=== PATIENT | female | born 1970 | race Caucasian/White ===

== ENCOUNTER 2022-12-06 15:35 | Outpatient (REF) | payer MEDICAID, SELFPAY ==
[2022-12-06 17:20] LABS: MANUAL DIFF FLAG NO
[2022-12-06 17:47] LABS: Alanine Aminotransferase 29 U/L (0-31); Albumin Level 4.3 g/dL (3.5-5.0); Alkaline Phosphatase 77 U/L (39-117); Anion Gap 12 (12-20); Aspartate Amino Transferase 21 U/L (5-31); Bilirubin Total 0.5 mg/dL (0.0-1.0); Blood Urea Nitrogen 9 mg/dL (9-16); C Reactive Protein < 0.10 mg/dL (< or = 0.50); Carbon Dioxide 29 mmol/L (22-29); Chloride 103 mmol/L (96-108); Cholesterol 197 mg/dL; Estimated Glomerular Filt Rate > 60; Glucose Random 100 mg/dL (60-115); HDL Cholesterol 76 mg/dL; LDL Cholesterol Calculated 102 mg/dl; Potassium 3.7 mmol/L (3.3-5.1); Sodium 140 mmol/L (135-145); Total Protein 6.6 g/dL (6.5-8.0); Triglycerides 95 mg/dL
[2022-12-06 17:51] LABS: Basophils Percent Auto 0.6 % (0-2); Eosinophils Absolute Auto 0.1 X10*3/uL (0.0-0.4); Eosinophils Percent Auto 1.8 % (0-4); Hematocrit 41.1 % (37.0-47.0); Hemoglobin 14.1 g/dl (12.0-16.0); Imm Gran Abs Auto 0.04 X10*3/uL (0.00-0.03); Imm Gran Pct Auto 0.6 % (0.0-0.4); Lymphocytes Absolute Auto 1.9 X10*3/uL (1.2-4.9); Mean Corpuscular HGB Conc 34.3 g/dl (31.0-35.0); Mean Corpuscular Hemoglobin 31.5 pg (27.0-33.0); Mean Corpuscular Volume 91.9 fL (80.0-98.0); Mean Platelet Volume 9.7 fL (9.4-12.3); Monocytes Absolute Auto 0.6 X10*3/uL (0.1-1.2); Neutrophils Absolute Auto 3.9 x10*3/uL (2.0-8.3); Platelet Count 356 X10*3/uL (160-400); Red Blood Count 4.47 X10*6/uL (4.20-5.50); Red Cell Distribution Width 12.1 % (11.0-16.0); White Blood Count 6.6 X10*3/uL (4.8-10.8)
[2022-12-06 17:54] LABS: Estimated Average Glucose 114 mg/dL; Hemoglobin A1c % 5.6 %
[2022-12-06 18:02] LABS: Cortisol Random 9.1 ug/dL; TSH reflex Free T4 1.61 uIU/mL (0.32-4.0); Vitamin D 25-OH Total 57.7 ng/mL (>30)
[2022-12-06 18:13] LABS: Folate 11.6 ng/mL (> or = 4.0); Vitamin B12 1984 pg/mL (200-900)
[2022-12-06 18:16] LABS: Erythrocyte Sedimentation Rate 12 MM/HR (0-20)
[2022-12-07 08:26] LABS: Syphilis Screen Nonreactive (Nonreactive)
[2022-12-07 08:46] LABS: ~Hepatitis C Antibody Nonreactive (Nonreactive)
[2022-12-07 08:55] LABS: HBS Num1 0.19 mIU/mL (0-7.99); HBc Num1 0.19 S/CO (0.00-0.79); HBsAGNum1 0.42 S/CO (0.00-0.99); HIV AB/AG Nonreactive (Nonreactive); HIV Num 1 0.05 S/CO (0.00-0.99); Hepatitis B Core Antibody Nonreactive (Nonreactive); Hepatitis B Surface Antigen Negative (Negative); ~Hepatitis B Surface Antibody NONREACTIVE (Nonreactive)
== END 2022-12-06 15:36 | disposition home or self-care (01) ==
LOC: HO.HHCL 15:35
PROVIDERS: Visit Provider Student in an Organized Health Care Education/Training Program
DX: Z00.00 Encounter for general adult medical examination without abnormal findings (principal); Z11.4 Encounter for screening for human immunodeficiency virus [HIV]
CPT/HCPCS: 80053; 80061; 82306; 82533; 82607; 82746; 83036; 84443; 85025; 85652; 86140; 86704; 86706; 86780; 86803; 87340; 87389

== ENCOUNTER 2022-12-11 13:45 | Outpatient (REF) | payer MEDICAID, SELFPAY ==
[2022-12-11 17:24] LABS: Creatinine Urine 58.13 mg/dL
[2022-12-12 11:36] LABS: CT PCR NOT DETECTED (Not Detect.); NG PCR NOT DETECTED (Not Detect.)
== END 2022-12-11 13:46 | disposition home or self-care (01) ==
LOC: HO.HHCL 13:45
PROVIDERS: Visit Provider Student in an Organized Health Care Education/Training Program
DX: Z00.00 Encounter for general adult medical examination without abnormal findings (principal); Z11.3 Encounter for screening for infections with a predominantly sexual mode of transmission
CPT/HCPCS: 0353U; 82043

== ENCOUNTER 2023-01-04 16:04 | Outpatient (REF) | payer MEDICAID, SELFPAY ==
--- NOTE | ~2023-01-04 | US_ITS ---
EXAMINATION: US THYROID CLINICAL INFORMATION: Thyroid nodule. COMPARISON: None available. TECHNIQUE: Linear transducer grayscale and color Doppler examination with attention to the region of the thyroid. FINDINGS: SIZE: Measurements of the thyroid lobes and nodules are given in sagittal, anteroposterior and transverse dimensions respectively. Right Thyroid Lobe: 3.8 x 1.7 x 1.1 cm, volume 2.3 mL. Parenchyma: The gland echotexture is homogeneous. Thyroid vascularity is normal. Left Thyroid Lobe: 3.6 x 1.2 x 1.0 cm, volume 2.3 mL. Parenchyma: The gland echotexture is homogeneous. Thyroid vascularity is normal. Isthmus: 0.3 cm in maximum AP dimension. No focal thyroid nodule is seen. NODES: 1.6 x 0.4 x 0.9 cm lymph node is seen in the right neck and is benign appearance with a large fatty center. US/US thyroid IMPRESSION: Normal size homogeneous thyroid gland without a focal nodule. 1.6 cm enlarged benign-appearing lymph node is seen in the right side of the neck. ACR TI-RADS RECOMMENDATION REFERENCE: Ultrasound-guided fine-needle aspiration, followup ultrasound, no further follow up. * TR1 (0 point) and TR2 (2 points): No FNA or follow up. * TR3 (3 points): FNA if more than or equal to 2.5 cm in maximum dimension, followup ultrasound in 1, 3 and 5 years if 1.5 to 2.4 cm in maximum dimension. * TR4 (4-6 points): FNA if more than or equal to 1.5 cm in maximum dimension, followup ultrasound in 1, 2, 3 and 5 years if 1 to 1.4 cm in maximum dimension. * TR5 (more than or equal to 7 points): FNA if more than or equal to 1 cm in maximum dimension, followup ultrasound every year for 5 years if 0.5 to 0.9 cm in maximum dimension. * TR3, TR4 or TR5 nodules that are below the size threshold for followup receive no follow up.
== END 2023-01-04 16:05 | disposition home or self-care (01) ==
LOC: HO.US 16:04
PROVIDERS: PCP Student in an Organized Health Care Education/Training Program; Visit Provider Student in an Organized Health Care Education/Training Program
DX: E04.1 Nontoxic single thyroid nodule (principal)
CPT/HCPCS: 76536

== ENCOUNTER 2023-01-09 13:03 | Outpatient (AMB) | payer MEDICAID, SELFPAY ==
--- NOTE | 2023-01-09 13:06 | MHC.OFFVIS ---
Intake Vital Signs 01/09/23 13:08 Height 5 ft 5 in Weight 143 lb 11.862 oz BMI 23.9 BP 143/83 H Blood Pressure Location Lt brachial Position Sitting Pulse 70 Pulse Source Pulse Oximeter Pulse Oximetry (%) 98 Oxygen Delivery Method Room Air Intake Visit Reasons: Colonoscopy Screening Intake Note: Pt presents to the office today for a colonoscopy screening. Pt denies and NVD. She states she occasionally has acid refulx. She also states in the past shes had polyps removed. Allergies No Known Allergies Allergy (Verified 01/09/23 13:09) Medication List - Last Reconciled 01/09/23 by Ashwini Simmons PA-C aripiprazole 20 mg PO DAILY atorvastatin 40 mg PO QAM celecoxib 100 mg PO DAILY dapagliflozin propanediol (Farxiga) 5 mg PO QAM fluoxetine 40 mg PO QAM gabapentin 800 mg PO QID lamotrigine 100 mg PO QAM losartan 25 mg PO DAILY metformin 1,000 mg PO BID omeprazole 20 mg PO DAILY quetiapine 100 mg PO BEDTIME zolpidem 10 mg PO BEDTIME PRN HPI HPI Comments History of Present Illness Details A 52 y/o female history of polyps- last colonoscopy [place] - 8 years ago She has had an EGD -that was normal- in [place] as well- acid reflux well controlled- appetite is good Bowels normal No cardiac or respiratory PFSH Medical History (Updated 01/09/23 @ 13:45 by Ashwini Simmons PA-C) delivery delivered Surgical History (Updated 01/09/23 @ 13:13 by Marbella Rice MA) History of cholecystectomy History of hysterectomy Social History (Updated 01/09/23 @ 13:14 by Marbella Rice MA) Household Members: Children Housing: House Alcohol intake: never Patient Tobacco Use Status: Never used Tobacco Use of substances other than those prescribed or required for medical reasons: No service: No Current occupational status: disabled Review of Systems Const All systems reviewed & are unremarkable except as noted in HPI and below Card Denies chest pain and Denies dyspnea Resp Denies dyspnea GI Denies abdominal pain, Denies hematochezia, Denies change in bowel habits, Denies heartburn, Denies nausea and Denies vomiting Physical Exam Vital Signs: Last Vital Signs Pulse 70 01/09/23 13:08 BP 143/83 H 01/09/23 13:08 Pulse Ox 98 01/09/23 13:08 Oxygen Delivery Method Room Air 01/09/23 13:08 BMI result Body Mass Index 23.9 Const General: cooperative, healthy appearing, comfortable and no acute distress Orientation/consciousness: patient oriented x3 Limitations: language barrier Resp Effort & Inspection: normal respiratory effort and able to speak in complete sentences Auscultation: clear to auscultation bilaterally, no crackles, no rales and no rhonchi Cardio Rate: regular rate Rhythm: regular rhythm Heart sounds: S1 normal heart sound present and S2 normal heart sound present GI Palpation (GI): Soft to palpation and nontender Auscultation: normal bowel sounds Skin General skin exam: no rashes or lesions noted Neuro General: patient oriented x3 Extrem General: Yes full ROM Psych Appearance: grossly normal and well kempt Mental Status: mental status grossly normal Speech and movement: Normal speech and movement present and Clear speech present Affect: normal affect Attitude: cooperative Thought process: Normal thought process present Thought content: Normal thought content present Insight: Good insight present (Psych) Judgement: Good judgement present (Psych) Assessment & Plan Assessment & Plan (1) History of colon polyps: Comment: Colonoscopy [place] about 8 years ago Code(s): Z86.010 - Personal history of colonic polyps Plan Polyp surveillance Colonoscopy - MG split Orders: Orders Colonoscopy - GI Use Only Today Z86.010 - Personal history of colonic polyps Medications: New bisacodyl (Dulcolax (bisacodyl)) Take 4 tablets by mouth at 12:00pm the day before your procedure. 20 mg (4 x 5 mg) PO ONCE 1 day 4 tabs 0RF colonoscopy prep Z12.11 - Encounter for screening for malignant neoplasm of colon polyethylene glycol 3350 (Miralax) Take as directed by mouth the day before your procedure. 238 grams PO ONCE 1 day PRN 238 grams 0RF laxative effect Patient Instructions: Very pleasant 52-year-old female history of colon polyps referred for colonoscopy-her is present, very supportive, nice Gent Discussed procedure, indications, rare risks, need for escorted due to anesthesia as well as prep She has very well controlled reflux with PPI- Coding Level of Care Code New Pt Level 3 (15725) Diagnoses History of colon polyps Z86.010 Time Spent (min) 30 Comment Regional Transfer Liaison
[2023-01-09 13:08] VITALS: BP 143/83; PULSE 70; O2SAT 98; BMI 23.9
== END 2023-01-09 13:38 | disposition home or self-care (01) ==
PROVIDERS: PCP Student in an Organized Health Care Education/Training Program; Visit Provider Physician Assistant
DX: Z86.010 Personal history of colon polyps (principal)
CPT/HCPCS: 99203

== ENCOUNTER → 2023-01-09 13:03 | Outpatient (BNVA) | payer MEDICAID, SELFPAY | PROVIDERS: PCP Student in an Organized Health Care Education/Training Program; Visit Provider Physician Assistant | DX: Z01.818 Encounter for other preprocedural examination (principal); Z86.010 Personal history of colon polyps | CPT/HCPCS: 99202; 99203 ==

== ENCOUNTER 2023-01-11 10:06 | Outpatient (REF) | payer MEDICAID, SELFPAY ==
--- NOTE | ~2023-01-11 | MM_ITS ---
EXAMINATION: MM SCREENING DIGITAL BREAST TOMOSYNTHESIS, BILATERAL CLINICAL INFORMATION: Screening. Asymptomatic. COMPARISON: Mammography: The patient's prior mammograms from [place]. The images have been requested and an addendum report will be issued when they are received entered comparison is made. TECHNIQUE: Digital breast tomosynthesis is performed in both the craniocaudal and mediolateral oblique views along with computer-aided detection (CAD). Synthesized 2D images are generated from the tomosynthesis. FINDINGS: There are scattered areas of fibroglandular density (ACR BI-RADS breast composition Category b). There are no significant masses, abnormal calcifications, or other abnormalities. MM/MM tomosynthesis screening BI IMPRESSION: No mammographic evidence of malignancy. ASSESSMENT: BI-RADS BI-RADS 1 - Negative RECOMMENDATION: 1. Radiology department staff will attempt to retrieve outside prior exam(s) to allow for comparison in an addendum report. 2. Otherwise, routine annual mammography. 1 year F/U This examination should not preclude the clinical evaluation of a suspicious palpable abnormality. This patient's information was entered into a reminder system with a target due date for their next mammogram.
== END 2023-01-11 10:07 | disposition home or self-care (01) ==
LOC: HO.MAMMO 10:06
PROVIDERS: PCP Student in an Organized Health Care Education/Training Program; Visit Provider Student in an Organized Health Care Education/Training Program
DX: Z12.31 Encounter for screening mammogram for malignant neoplasm of breast (principal)
CPT/HCPCS: 77063; 77067

== ENCOUNTER → 2023-01-11 10:15 | Outpatient (BNV) | payer MEDICAID, SELFPAY | PROVIDERS: PCP Student in an Organized Health Care Education/Training Program; Visit Provider Radiology Diagnostic Radiology | DX: Z12.31 Encounter for screening mammogram for malignant neoplasm of breast (principal) | CPT/HCPCS: 77063; 77067 ==

== ENCOUNTER 2023-01-23 08:20 | Outpatient (REF) | payer MEDICAID, SELFPAY ==
--- NOTE | ~2023-01-23 | CT_ITS ---
EXAMINATION: CT ABDOMEN AND PELVIS WITH CONTRAST CLINICAL INFORMATION: History of uterine CA. COMPARISON: None available. TECHNIQUE: Multidetector volumetric images were obtained from the superior aspect of the liver through the pubic symphysis following administration 85 mL of Omnipaque 350 intravenous contrast. Sagittal and coronal reformatted images were obtained on the technologist's workstation. Oral contrast: No This CT examination was performed using dose optimization techniques as appropriate, variously including the following: *Automated exposure control *Adjustment of mA and/or kV according to patient size (this includes techniques or standardized protocols for targeted exams where dose is matched to indication/reason for exam; i.e. extremities or head) *Use of iterative reconstruction technique DLP: 295 mGy-cm FINDINGS: LUNG BASES: There are minimal atelectatic changes right middle lobe medially. The lung bases are clear. The heart size is normal. LIVER, GALLBLADDER, AND BILIARY TREE: The liver is normal in size, shape, and attenuation. No focal hepatic lesion or biliary ductal dilatation is present. The gallbladder is not visualized, likely surgically removed or contracted. PANCREAS: Unremarkable. SPLEEN: The spleen is normal size. There is a 1.2 cm faintly enhancing lesion mid segment on axial image 16/3, likely a small hemangioma. There are small accessory splenules. ADRENAL GLANDS: Unremarkable. KIDNEYS AND URETERS: The kidneys are normal in size, shape, and attenuation. No hydronephrosis, hydroureter, or calculi seen. No perinephric stranding. BLADDER: Unremarkable. GASTROINTESTINAL TRACT: There is scattered stool and gas seen throughout the colon without any significant distention. There is a soft tissue density along the base of the cecum measuring 1.8 x 2.6 cm on coronal image 38/6. The ileocecal valve is normal. The small bowel loops are normal caliber. Appendix is not visualized. The stomach is nondistended. ABDOMINAL WALL: No significant hernia is appreciated. LYMPH NODES: Normal. VASCULAR: Unremarkable. PELVIC VISCERA: The uterus and ovaries are not visualized, likely surgically removed. No abnormal pelvic or inguinal lymph nodes seen. OSSEOUS STRUCTURES: No aggressive lytic or sclerotic process seen. CT/CT abdomen pelvis w IV con IMPRESSION: 1. No acute intra-abdominal process seen. 2. There is a soft tissue density along the base of the cecum measuring 1.8 x 2.6 cm. Mass versus adherent stool. Recommend correlation with irregular colonoscopy or CT colonoscopy. 3. No abnormal retroperitoneal or pelvic lymph nodes seen. 4. Probable small hemangioma mid segment of the spleen. 5. Gallbladder is not visualized likely surgically removed or contracted. Fleischner guidelines were followed.
[2023-01-23] MEDS: Barium Sulfate Oral (Berry) 450 ML ORAL.SUSP 900 ML PO (10:58)
[2023-01-23] MEDS: iohexoL 350 MG/ML 100 ML INFUS..BTL IV (10:59)
[2023-01-24 08:55] LABS: Creatinine POC 0.4 mg/dL (0.5-1.4); GFR POC 60
== END 2023-01-23 08:21 | disposition home or self-care (01) ==
LOC: HO.CT 08:20
PROVIDERS: PCP Student in an Organized Health Care Education/Training Program; Visit Provider Student in an Organized Health Care Education/Training Program
DX: Z85.42 Personal history of malignant neoplasm of other parts of uterus (principal)
CPT/HCPCS: 74177; 82565; Q9967

== ENCOUNTER 2023-03-05 12:17 | Outpatient (REF) | payer MEDICAID, SELFPAY ==
[2023-03-05 13:58] LABS: Estimated Average Glucose 114 mg/dL; Hemoglobin A1c % 5.6 % (<6.0)
[2023-03-05 14:22] LABS: Alanine Aminotransferase 38 U/L (0-31); Albumin Level 4.6 g/dL (3.5-5.0); Alkaline Phosphatase 125 U/L (39-117); Anion Gap 13 (12-20); Aspartate Amino Transferase 22 U/L (5-31); Bilirubin Total 0.4 mg/dL (0.0-1.0); Blood Urea Nitrogen 13 mg/dL (9-16); Calcium 10.2 mg/dL (8.4-10.2); Carbon Dioxide 29 mmol/L (22-29); Chloride 104 mmol/L (96-108); Cholesterol 207 mg/dL (<200); Estimated Glomerular Filt Rate > 60; Glucose Random 127 mg/dL (60-115); HDL Cholesterol 63 mg/dL (>40); LDL Cholesterol Calculated 131 mg/dL (<100); Potassium 4.3 mmol/L (3.3-5.1); Sodium 142 mmol/L (135-145); Total Protein 7.2 g/dL (6.5-8.0); Triglycerides 65 mg/dL (<150)
[2023-03-05 14:41] LABS: Folate 12.2 ng/mL (> or = 4.0); Vitamin B12 1325 pg/mL (200-900)
[2023-03-05 15:13] LABS: Microalbum/Creatinine Ratio Ur 7.4 ug/mg cr (<30)
== END 2023-03-05 12:18 | disposition home or self-care (01) ==
LOC: HO.HHCL 12:17
PROVIDERS: Visit Provider Student in an Organized Health Care Education/Training Program
DX: E11.40 Type 2 diabetes mellitus with diabetic neuropathy, unspecified (principal)
CPT/HCPCS: 36415; 80053; 80061; 82043; 82570; 82607; 82746; 83036

== ENCOUNTER 2023-03-19 12:10 | Day surgery (SDC) | payer MEDICAID, SELFPAY ==
[2023-03-15 11:25] VITALS: BMI 23.8
--- NOTE | 2023-03-18 09:15 | HO.ANESPROP2 ---
Documented by User: Serina Delcid NP 03/18/23 09:17 HPI - Anesthesia Eval Consult details Narrative: 52yo F Colonoscopy PMFSH Active Problems Active Problems: All Active Problems (Updated 01/09/23 @ 13:45 by Ashwini Simmons PA-C) History of colon polyps (Acute) Past Medical History Medical History delivery delivered Surgical History Surgical History History of hysterectomy History of cholecystectomy Social History Social History (Updated 01/09/23 @ 13:14 by Marbella Rice MA) Household Members: Children Housing: House Alcohol intake: never Patient Tobacco Use Status: Never used Tobacco Use of substances other than those prescribed or required for medical reasons: No Are you DNR?: No Advance Directives: No Advance Directives Information Provided: Yes service: No Current occupational status: disabled Meds Allergies Allergy/AdvReac Type Severity Reaction Status Date / Time No Known Allergies Allergy Verified 03/19/23 12:34 Home Medications Medication Instructions Recorded Confirmed Last Taken Type atorvastatin 40 mg tablet 40 mg PO QAM 01/09/23 Unknown History dapagliflozin propanediol 5 mg 5 mg PO QAM 01/09/23 Unknown History tablet (Farxiga) fluoxetine 40 mg capsule 40 mg PO QAM 01/09/23 Unknown History gabapentin 800 mg tablet 800 mg PO QID 01/09/23 Unknown History lamotrigine 100 mg tablet 100 mg PO QAM 01/09/23 03/19/23 03/19/23 History losartan 25 mg tablet 25 mg PO DAILY 01/09/23 Unknown History metformin 1,000 mg tablet 1,000 mg PO BID 01/09/23 Unknown History omeprazole 20 mg capsule,delayed 20 mg PO DAILY 01/09/23 Unknown History release quetiapine 100 mg tablet 100 mg PO BEDTIME 01/09/23 Unknown History zolpidem 10 mg tablet 10 mg PO BEDTIME PRN insomnia 01/09/23 Unknown History Exam Exam Date and Time: March 18, 2023 0915 Height,Weight and Vital Signs: Height 5 ft 5 in Weight 64.864 kg Pertinent Lab Results Pertinent Lab Results: Laboratory Tests 12/06/22 03/05/23 15:45 12:21 WBC 6.6 Hgb 14.1 Hct 41.1 Plt Count 356 Sodium 142 Potassium 4.3 Chloride 104 Carbon Dioxide 29 BUN 13 Creatinine 0.72 Assessment and Plan Assessment Anesthesia Assessment: Chart Reviewed Documented by User: Sil Gonzalez MD 03/19/23 13:13 [facility], [facility] Past Medical History Medical History delivery delivered Family History Family history of problems with anesthesia: No Surgical History Surgical History History of hysterectomy History of cholecystectomy History of Problems with Anesthesia: No Social History Social History (Updated 01/09/23 @ 13:14 by Marbella Rice MA) Household Members: Children Housing: House Alcohol intake: never Patient Tobacco Use Status: Never used Tobacco Use of substances other than those prescribed or required for medical reasons: No Are you DNR?: No Advance Directives: No Advance Directives Information Provided: Yes service: No Current occupational status: disabled Meds Allergies Allergy/AdvReac Type Severity Reaction Status Date / Time No Known Allergies Allergy Verified 03/19/23 12:34 Home Medications Medication Instructions Recorded Confirmed Last Taken Type atorvastatin 40 mg tablet 40 mg PO QAM 01/09/23 Unknown History dapagliflozin propanediol 5 mg 5 mg PO QAM 01/09/23 Unknown History tablet (Farxiga) fluoxetine 40 mg capsule 40 mg PO QAM 01/09/23 Unknown History gabapentin 800 mg tablet 800 mg PO QID 01/09/23 Unknown History lamotrigine 100 mg tablet 100 mg PO QAM 01/09/23 03/19/23 03/19/23 History losartan 25 mg tablet 25 mg PO DAILY 01/09/23 Unknown History metformin 1,000 mg tablet 1,000 mg PO BID 01/09/23 Unknown History omeprazole 20 mg capsule,delayed 20 mg PO DAILY 01/09/23 Unknown History release quetiapine 100 mg tablet 100 mg PO BEDTIME 01/09/23 Unknown History zolpidem 10 mg tablet 10 mg PO BEDTIME PRN insomnia 01/09/23 Unknown History Exam Airway Mallampati Class: II TM Dist: >3cm Neck ROM: Full Assessment and Plan Assessment Anesthesia Assessment: Anesthesia Plan Discussed Final Anesthetic Review Family History of Problems with Anesthesia: No History of Problems with Anesthesia: No NPO: Yes ASA Class: III Final Preanesthetic Review: No Changes in Pt Med Stat, Meds/Allgs Chart Reviewed, Consent Obtained/Reviewed and Anes Risks/Benef Reviewed Patient Risk: Intermediate Procedure Risk: Low Anesthetic Plan Anesthetic Plan: MAC: Disposition: Standard PACU
[2023-03-19 12:28] VITALS: BMI 24.5
[2023-03-19 12:48] VITALS: BP 139/76; PULSE 70; RESP 16; TEMP 36.6; O2SAT 97
[2023-03-19 12:55] LABS: Glucose, Whole Blood 130 mg/dL (60-115)
--- NOTE | 2023-03-19 13:33 | MHC.SHP ---
Pre-Procedural Eval Section A Date of Service: 03/19/23 Section B Chief Complaint: Cecal mass Details of Present Illness: prev colo in [place] around 2014 with reported hx of polyps Relevant Family History (Specify if Yes): No Relevant Social History: None Present Medications: see Short Stay Collaborative assessment Medical History: No relevant PMH History of Previous Operations: No relevant previous surgery Allergies: Allergies Allergy/AdvReac Type Severity Reaction Status Date / Time No Known Allergies Allergy Verified 03/19/23 12:34 Review of Systems Review of Systems Comment: 10 point ROS negative Exam Exam Comment: Gen appear: No acute distress HEENT: no icterus Chest: No overt resp distress Abd: soft, nontender, nondistended Psych: Stable affect, answering questions appropriately Neuro: A/Ox3 noted to move all extremities spontaneously Ext: no peripheral edema Plan Diagnosis/Plan: Unchanged I have reviewed the history and physical and performed a pertinent physical examination on my patient. No changes have occurred unless specified. Time Spent With Patient Time: Total time managing care of this patient today ____ minutes.
--- NOTE | 2023-03-19 13:34 | P.OP_ITS ---
Operative Note Operative Note Date of Service: 03/19/23 Narrative: Procedure: Colonoscopy Indication: Abnormal imaging r/o cecal mass Endoscopist: Gavi Dixon MD Anesthesia Provider: Bre Farrar CRNA Anesthesia type: MAC Instrument: Olympus [id number]-H190L Consent: Indication, risks vs benefits, and alternatives were discussed with the patient who gave written informed consent to proceed. EKG, pulse, pulse oximetry and blood pressure were monitored throughout the procedure. Please see anesthesia flowsheet. Procedure: The patient was brought to the procedure room and placed in the left lateral decubitus position. IV medications were administered by the anesthesia provider in attendance. A digital rectal exam was performed which was normal. A distal attachment cap was affixed to the tip of the scope and the colonoscope was then inserted through the anus and advanced through the colon to the cecum at 80 cm,and terminal ileum. Iileocecal valve and appendiceal orifice were identified. Mucosa was carefully examined under high definition white light as the instrument was slowly withdrawn in a retrograde panoramic fashion. Retroflexion was performed in rectum. The procedure was not difficult. There were no immediate obvious complications. The quality of the prep was BBPS: 2+3+2 = adequate Withdrawal time 15 minutes. Limitations: No limitations. Findings: Mucosa: Hyperpigmentation of the mucosa noted in R colon compatible with melan osis coli but otherwise mucosa was normal to cecum and terminal ileum. Protruding lesions: * 1 sessile polyp of size 4 mm in descending colon. Cold snare polypectomy was performed. The polyp was completely removed and retrieved. * Medium internal hemorrhoids without stigmata of recent bleeding. Excavated lesions: * Single diverticulum was seen in cecum right next to the ileocecal valve. Impression: 1. 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 Total of 1 polyp removed 3. Internal hemorrhoids 4. Cecal diverticulum Recommendations: - Follow path results. - Repeat colonoscopy in 7-10 years if polyp is an adenoma
[2023-03-19 14:26] VITALS: BP 121/76; PULSE 68; RESP 18; TEMP 36.3; O2SAT 100
[2023-03-19 14:41] VITALS: BP 132/76; PULSE 61; RESP 16; TEMP 36.4; O2SAT 100
== END 2023-03-19 15:13 | disposition home or self-care (01) ==
PROVIDERS: PCP Student in an Organized Health Care Education/Training Program; Visit Provider Internal Medicine
PROC: 0DJD8ZZ Inspection of Lower Intestinal Tract, Via Natural or Artificial Opening Endoscopic (ICD-10-PCS; CPT 45378; principal; 2023-03-19 13:30)
DX: Z12.11 Encounter for screening for malignant neoplasm of colon (principal); Z86.010 Personal history of colon polyps; K63.5 Polyp of colon; K57.30 Diverticulosis of large intestine without perforation or abscess without bleeding; K64.8 Other hemorrhoids; K63.89 Other specified diseases of intestine; K21.9 Gastro-esophageal reflux disease without esophagitis; Z79.84 Long term (current) use of oral hypoglycemic drugs; Z79.899 Other long term (current) drug therapy
CPT/HCPCS: 45385; 82947; 88305

== ENCOUNTER → 2023-03-19 12:10 | Outpatient (BNV) | payer MEDICAID, SELFPAY | PROVIDERS: PCP Student in an Organized Health Care Education/Training Program; Visit Provider Internal Medicine | DX: R93.3 Abnormal findings on diagnostic imaging of other parts of digestive tract (principal); D12.4 Benign neoplasm of descending colon; K64.8 Other hemorrhoids | CPT/HCPCS: 45385 ==

== ENCOUNTER 2023-03-21 10:00 | Outpatient (RCR) | payer MEDICAID, SELFPAY | END 2023-04-30 11:45 | disposition home or self-care (01) | LOC: HO.PT 10:00 | PROVIDERS: PCP Student in an Organized Health Care Education/Training Program; Visit Provider Student in an Organized Health Care Education/Training Program | DX: M54.50 Low back pain, unspecified (principal); G89.29 Other chronic pain | CPT/HCPCS: 97110; 97161 ==

== ENCOUNTER 2023-03-27 18:13 | Outpatient (REF) | payer MEDICAID, SELFPAY ==
[2023-04-01 11:59] LABS: HPV mRNA E6/E7 rflx Not Detected (Not Detected)
== END 2023-03-27 18:14 | disposition home or self-care (01) ==
LOC: HO.HHCLNP 18:13
PROVIDERS: Visit Provider Advanced Practice Midwife
DX: Z01.419 Encounter for gynecological examination (general) (routine) without abnormal findings (principal)
CPT/HCPCS: 87624; 88142

== ENCOUNTER 2023-07-08 10:27 | Outpatient (REF) | payer MEDICAID, SELFPAY ==
--- NOTE | ~2023-07-08 | MR_ITS ---
MRI OF THE BRAIN WITHOUT IV CONTRAST INDICATION: Memory loss, episodes of instability COMPARISON: None. TECHNIQUE: Multiplanar multisequence MR imaging of the brain was obtained without IV contrast. FINDINGS: There is no hydrocephalus, extra-axial surface collection, or herniation. There is mild chronic microangiopathy. The major flow voids at the skull base are preserved. There is no acute infarct on diffusion-weighted imaging. There is no intracranial hemorrhage on the gradient recalled echo acquisition. The midline structures are normal. The cerebellar tonsils are normally positioned. The cerebellum and brainstem are normal. The craniocervical junction is normal. Osseous marrow signal intensity is homogenous. The visualized soft tissues are unremarkable. MR/MR head/brain wo con IMPRESSION: No acute intracranial findings. There is mild chronic microangiopathy. No appreciable cerebral volume loss.
== END 2023-07-08 10:28 | disposition home or self-care (01) ==
LOC: HO.MRI 10:27
PROVIDERS: PCP Student in an Organized Health Care Education/Training Program; Visit Provider Student in an Organized Health Care Education/Training Program
DX: R41.3 Other amnesia (principal); R29.6 Repeated falls
CPT/HCPCS: 70551

== ENCOUNTER 2023-07-26 10:02 | Outpatient (REF) | payer MEDICAID, SELFPAY ==
[2023-07-26 12:09] LABS: Estimated Average Glucose 117 mg/dL; Hemoglobin A1c % 5.7 % (<6.0)
[2023-07-26 12:39] LABS: Alanine Aminotransferase 44 U/L (0-31); Albumin Level 4.6 g/dL (3.5-5.0); Alkaline Phosphatase 120 U/L (39-117); Anion Gap 17 (12-20); Aspartate Amino Transferase 24 U/L (5-31); Bilirubin Total 0.5 mg/dL (0.0-1.0); Blood Urea Nitrogen 18 mg/dL (9-16); Calcium 10.5 mg/dL (8.4-10.2); Carbon Dioxide 28 mmol/L (22-29); Chloride 101 mmol/L (96-108); Cholesterol 239 mg/dL (<200); Estimated Glomerular Filt Rate > 60; Glucose Random 127 mg/dL (60-115); HDL Cholesterol 72 mg/dL (>40); LDL Cholesterol Calculated 149 mg/dL (<100); Sodium 142 mmol/L (135-145); Total Protein 7.4 g/dL (6.5-8.0); Triglycerides 90 mg/dL (<150)
[2023-07-26 13:08] LABS: Folate 17.8 ng/mL (> or = 4.0); Vitamin B12 1519 pg/mL (200-900)
== END 2023-07-26 10:03 | disposition home or self-care (01) ==
LOC: HO.HHCL 10:02
PROVIDERS: Visit Provider Student in an Organized Health Care Education/Training Program
DX: E11.40 Type 2 diabetes mellitus with diabetic neuropathy, unspecified (principal)
CPT/HCPCS: 36415; 80053; 80061; 82607; 82746; 83036

== ENCOUNTER 2023-07-29 16:45 | Outpatient (REF) | payer MEDICAID, SELFPAY ==
--- NOTE | ~2023-07-29 | MR_ITS ---
EXAMINATION: MR HAND WITHOUT AND WITH CONTRAST, LEFT CLINICAL INFORMATION: Left hand pain, numbness, lump/mass. Palmar nodularities with pain. COMPARISON: None available. TECHNIQUE: Multisequence MR imaging of the left hand was obtained before and after the IV administration of 6 mL Gadavist contrast on a high-field strength scanner. FINDINGS: BONE: No acute fracture or dislocation. Normal carpal alignment. No marrow edema. No postcontrast marrow enhancement. No concerning lytic or blastic osseous lesion. MUSCLES/TENDONS: The visualized flexor and extensor tendons are intact. No transverse tendon tear or tendon retraction. LIGAMENTS: Intact collateral ligaments. SOFT TISSUES: Along the palmar fascia ventral to the fourth flexor tendon sheath there is an isointense T1 and slightly hyperintense T2 focus which demonstrates diffuse heterogeneous postcontrast enhancement measuring 0.4 x 1.6 x 3.2 cm (AP by ML by CC). Findings are consistent with palmar fascial fibrosis. No additional soft tissue mass or fluid collection. MR/MR hand LT wo/w con IMPRESSION: 1. Plantar fascial fibrosis along the ventral aspect of the fourth flexor tendon sheath measuring up to 3.2 cm in greatest dimension. 2. No additional soft tissue mass or fluid collection.
[2023-07-29] MEDS: gadobutroL 7.5 ML VIAL IVPUSH (17:43)
== END 2023-07-29 16:46 | disposition home or self-care (01) ==
LOC: HO.MRI 16:45
PROVIDERS: PCP Student in an Organized Health Care Education/Training Program; Visit Provider Student in an Organized Health Care Education/Training Program
DX: M79.642 Pain in left hand (principal)
CPT/HCPCS: 73220; A9585

== ENCOUNTER 2023-09-18 11:08 | Outpatient (AMB) | payer MEDICAID, SELFPAY ==
--- NOTE | 2023-09-18 11:31 | A.OFFVIS_ITS ---
Intake Visit Reasons: N/P Pain of left hand Intake Note: Yuly 53 yr old female who is right hand dominant female who presents today with left hand pain. Patient reports that she has had pain, itching, numbness and tingling. Pain is felt in the palm of the hand with numbness and tingling of her fingers. Hx of cubital and carpal tunnel of the right side. No NCS MRI done. Allergies No Known Allergies Allergy (Verified 09/18/23 11:34) HPI HPI N/P Pain of left hand: Details: Yuly is a 53 year old right hand dominant Diabetic woman who presents with complaints of left hand pain & numbness. She also has a thickening in her palm in line with the ring finger and a recent MRI of her left hand has been done, ordered by her PCP. She also has pain at the base of her ring finger, and says this finger locks painfully at times. She complains of numbness in the left thumb, index, and middle fingers. Symptoms intermittent, but daily, worse at night. She has a hx of a right carpal & cubital tunnel release in the past, with good relief. She says she has normal sensation in her right hand. FORMERLY [facility], [facility]1983 Medical History (Updated 09/18/23 @ 11:42 by Joe Guevara) delivery delivered Surgical History (Updated 09/18/23 @ 11:35 by Minna Cui [facility]) History of carpal tunnel surgery of right wrist S/P cubital tunnel release History of hysterectomy History of cholecystectomy Social History (Updated 01/09/23 @ 13:14 by Marbella Rice [facility]) Household Members: Children Housing: House Alcohol intake: never Patient Tobacco Use Status: Never used Tobacco service: No Current occupational status: disabled Review of Systems Const All systems reviewed & are unremarkable except as noted in HPI and below Physical Exam Const General: cooperative, healthy appearing and no acute distress Orientation/consciousness: patient oriented x3 HEENT Head: Yes normocephalic and Yes atraumatic Eyes EOM: EOMs intact bilaterally Resp Effort & Inspection: normal respiratory effort and able to speak in complete sentences Cardio Jugular venous distension: no JVD Skin General skin exam: turgor normal Rashes: no rashes Neuro General: patient oriented x3 Extrem Other: Evaluation of Left Upper Extremity: The patient is alert, oriented, and in no acute distress Neuro: Median, Ulnar, Radial nerves motor and sensory intact and sensation is normal to the tips of all digits Vascular: Cap refill brisk ROM: She can make a fist and extend all her digits She can place her hand flat on the table without difficulty Mildly tender over the a1 zaid of the ring finger No locking or catching today Skin: No lacerations or abrasions. General: No Ecchymosis. No Erythema or evidence of infection. She has some palmar fibrosis, measuring ~3cm in length X 1cm in width, in line with the ring finger. This appears to be consistent with possible Dupuytren's disease. This does not reach the ring finger at this time. No evidence of contractures seen today Left Hand MRI: IMPRESSION: 1. Plantar fascial fibrosis along the ventral aspect of the fourth flexor tendon sheath measuring up to 3.2 cm in greatest dimension. 2. No additional soft tissue mass or fluid collection. Dictated By: Aguilar Chaparro MD 07/30/23 Please see the report for additional information as necessary Psych Appearance: grossly normal Affect: normal affect Attitude: cooperative Assessment & Plan Assessment & Plan (1) Dupuytren's disease of palm of left hand: Code(s): M72.0 - Palmar fascial fibromatosis [Dupuytren] Category: Medical (2) Numbness and tingling in left hand: Code(s): R20.0 - Anesthesia of skin; R20.2 - Paresthesia of skin Category: Medical (3) Trigger finger, left ring finger: Code(s): M65.342 - Trigger finger, left ring finger Category: Medical Plan Assessment & Plan: 1. Left hand Dupuytrens disease With palmar fibrosis measuring ~3cm X 1cm, in line with the ring finger No contractures I educated her about this condition I am not recommending surgery at this time I directed her to the [email or web address] website for more information I recommend she work on ROM exercises at home 2. Left hand numbness In all digits Symptoms intermittent, but daily, worse at night I educated her on carpal & cubital tunnel syndrome She will try to pay attention to if her small finger does go numb along with the others I ordered a NCS to assess for peripheral nerve compression She will follow up when completed for review 3. Left ring finger trigger finger I educated her about this condition I discussed operative & non-operative treatment options She declined any treatment options today, saying she would like to wait We will discuss treatment when she returns for her NCS review 4. History of right carpal tunnel syndrome, S/P release Performed at an outside clinic, date unknown 5.History of right cubital tunnel syndrome, S/P release Performed at an outside clinic, date unknown She reports normal sensation in her right hand Scribed for Amber Gonzalez MD by Joe Guevara, chief medical physicist, on 09/18/23 at 11:35 AM, EST. Coding Level of Care Code New Pt Level 4 (82902) Diagnoses Dupuytren's disease of palm of left hand M72.0 Numbness and tingling in left hand R20.0; R20.2 Trigger finger, left ring finger M65.342
== END 2023-09-18 11:48 | disposition home or self-care (01) ==
PROVIDERS: PCP Student in an Organized Health Care Education/Training Program; Referring Provider Student in an Organized Health Care Education/Training Program; Visit Provider Orthopaedic Surgery
DX: M72.0 Palmar fascial fibromatosis [Dupuytren] (principal); R20.0 Anesthesia of skin; R20.2 Paresthesia of skin; M65.342 Trigger finger, left ring finger
CPT/HCPCS: 99203

== ENCOUNTER → 2023-09-18 11:08 | Outpatient (BNVA) | payer MEDICAID, SELFPAY | PROVIDERS: PCP Student in an Organized Health Care Education/Training Program; Visit Provider Orthopaedic Surgery | DX: M72.0 Palmar fascial fibromatosis [Dupuytren] (principal); M65.342 Trigger finger, left ring finger; R20.0 Anesthesia of skin; R20.2 Paresthesia of skin | CPT/HCPCS: 99202 ==

== ENCOUNTER 2023-09-20 14:43 | Outpatient (REF) | payer MEDICAID, SELFPAY ==
--- NOTE | ~2023-09-20 | XR_ITS ---
EXAMINATION: XR KNEE, RIGHT CLINICAL INFORMATION: Reason for Exam right knee pain, likely OA COMPARISON: None TECHNIQUE: 2 views of the knee FINDINGS: No acute fracture or dislocation. Mild degenerative changes of the knee with quadriceps tendon enthesopathy and small lateral compartment osteophytes. No joint effusion. Soft tissues are unremarkable. XR/XR knee RT 2V IMPRESSION: * No acute osseous abnormality. * Mild degenerative changes of the knee.
== END 2023-09-20 14:44 | disposition home or self-care (01) ==
LOC: HO.HHCX 14:43
PROVIDERS: Visit Provider Student in an Organized Health Care Education/Training Program
DX: M23.8X1 Other internal derangements of right knee (principal)
CPT/HCPCS: 73560

== ENCOUNTER 2023-10-09 09:04 | Outpatient (AMB) | payer MEDICAID, SELFPAY ==
[2023-10-09 09:18] VITALS: BP 124/82; PULSE 74; BMI 25.7
--- NOTE | 2023-10-09 09:18 | A.OFFVIS_ITS ---
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 Intake Note: New patient c/o chest pain center of chest with sob having the pain now doing ekg Termite Control Technician Required: Yes Termite Control Technician Name: daughter Position Classification Manager: Position Classification Manager Present Accompanied by: Daughter Allergies No Known Allergies Allergy (Verified 09/18/23 11:34) Medication List - Last Reconciled 10/09/23 by Nimesh Davis MD atorvastatin 40 mg PO QAM dapagliflozin propanediol (Farxiga) 5 mg PO QAM fluoxetine 40 mg PO QAM gabapentin 800 mg PO QID lamotrigine 100 mg PO QAM losartan 25 mg PO DAILY metformin 1,000 mg PO BID omeprazole 20 mg PO DAILY quetiapine 100 mg PO BEDTIME zolpidem 10 mg PO BEDTIME PRN HPI Comments Details: Yuly was referred for evaluation of chest pain. She presents here with her daughter who acts as die maker bench stamping. They declined a certified die maker bench stamping. Patient has longstanding history of diabetes as well as hyperlipidemia on statin therapy. Most recently LDL was still elevated at 149 and was prescribed another medication although she has not aware of the name and she has not started it. She she also has history of fibromyalgia and neuropathy. For about 6 months she has been getting precordial chest pain which she describes in the upper chest area radiating up to her shoulder. Pain is worse with deep breathing as well as when she touches it and feels like a chest tightness. This pain is not related to exertion can happen at stress and can last for many hours. In fact she was having chest pain today while she was in the office which is reproducible to touch an EKG showed normal sinus rhythm. However she also complains of exertional shortness of breath when she climbs a flight of stairs. This happens for the last few months. She denies any clear orthopnea, PND, leg edema. No symptoms of palpitations, lightheadedness, syncope. She denies any strong family history of coronary artery disease. [facility] Medical History delivery delivered Surgical History History of carpal tunnel surgery of right wrist S/P cubital tunnel release History of hysterectomy History of cholecystectomy Social History Household Members: Children Housing: House Alcohol intake: never Patient Tobacco Use Status: Never used Tobacco service: No Current occupational status: disabled Review of Systems Const Denies chills, Denies fatigue, Denies fever(s), Denies frequent falls, Denies weakness, Denies weight gain and Denies weight loss Eyes Denies loss of vision ENT Denies dizziness Card Reports chest pain, Denies leg edema, Denies lightheadedness, Denies palpitat ions, Denies dyspnea, Denies dyspnea on exertion, Denies orthopnea and Denies other (loss of consciousness) Resp Denies cough, Denies dyspnea, Denies dyspnea on exertion and Denies wheezing GI Denies hematochezia and Denies change in stool character Denies urinary frequency and Denies dysuria Musc Denies abnormal gait, Denies muscle weakness, Denies numbness, Denies radiating pain into limb and Denies tingling Skin/Breast Denies nail changes and Denies rash Neuro Denies abnormal gait, Denies dizziness, Denies frequent falls, Denies loss of vision, Denies memory loss, Denies numbness, Denies tingling and Denies weakness Psych Denies depression and Denies memory loss Endo Denies fatigue and Denies palpitations [place]/Lymph Reports easy bruising and Reports other (anemia) Aller/Immun Denies wheezing Physical Exam Vital Signs: Last Vital Signs Pulse 74 10/09/23 09:18 BP 124/82 10/09/23 09:18 BMI result Body Mass Index 25.7 Const General: cooperative, comfortable, no acute distress, well developed, alert, awake, Physically active and well groomed Nutritional Appearance: average body habitus and well nourished Orientation/consciousness: patient oriented x3 Limitations: no limitations HEENT Head: Yes normocephalic and Yes atraumatic Neck Neck: Yes trachea midline, Yes supple and Yes no JVD Resp Effort & Inspection: normal respiratory effort Auscultation: clear to auscultation bilaterally Cardio Jugular venous distension: no JVD and other (Reproducible pain over the upper right precordial area) Palpation: normal PMI Rate: regular rate Rhythm: regular rhythm Heart sounds: S1 normal heart sound present, S2 normal heart sound present, no click, no gallops, no murmurs and no rubs GI Auscultation: normal bowel sounds Skin General skin exam: no rashes or lesions noted Neuro General: patient oriented x3 and no focal motor deficits Extrem General: Yes no clubbing, cyanosis or edema Office Procedures EKG Details: EKG shows normal sinus rhythm with normal EKG at 75 beats per minute [id number], Complete Assessment & Plan Assessment & Plan (1) Non-cardiac chest pain: Code(s): R07.89 - Other chest pain Plan: Patient has reproducible upper precordial chest pain which to me appears to be musculoskeletal probably related to fibromyalgia. This was discussed with her. She was having active chest pain with normal EKG and her chest pain is nonexertional and can happen for many hours. (2) SOB (shortness of breath) on exertion: Code(s): R06.02 - Shortness of breath Plan: Patient has exertional shortness of breath which is concerning given her longstanding history of diabetes and hyperlipidemia. Need to rule out for obstructive coronary artery disease as a cause of her symptoms. Discussed with her about pursuing exercise myocardial perfusion imaging to evaluate for myocardial ischemia. Also suggest an echocardiogram to evaluate LV systolic and diastolic function to evaluate for valvular function. These tests will be scheduled in near future. Continue aggressive risk factor modification. Goal hemoglobin A1c less than 7%. Goal LDL ideally less than 70 mg/dL. I would consider up titrating her atorvastatin to 80 mg and add ezetimibe 10 mg to regimen. Follow-up lipid panel in 3 months time. If her testing is within normal limits with no evidence of myocardial ischemia can consider doing a coronary calcium score to assess for presence of atherosclerosis. Will follow up in the clinic in 6 weeks time. Thank you for allowing me to partake in the care Coding Level of Care Code New Pt Level 4 (34926) Diagnoses Non-cardiac chest pain R07.89 SOB (shortness of breath) on exertion R06.02 CPT Codes EKG - CPT: 40590-[id number], Complete ([id number])
== END 2023-10-09 09:44 | disposition home or self-care (01) ==
PROVIDERS: PCP Student in an Organized Health Care Education/Training Program; Visit Provider Internal Medicine Cardiovascular Disease
DX: R07.89 Other chest pain (principal); R06.02 Shortness of breath
CPT/HCPCS: 93010; 99204

== ENCOUNTER → 2023-10-09 09:04 | Outpatient (BNVA) | payer MEDICAID, SELFPAY | PROVIDERS: PCP Student in an Organized Health Care Education/Training Program; Visit Provider Internal Medicine Cardiovascular Disease | DX: R07.89 Other chest pain (principal); R06.02 Shortness of breath | CPT/HCPCS: 93005; 99202 ==

== ENCOUNTER 2024-01-07 12:59 | Outpatient (REF) | payer MEDICAID, SELFPAY ==
--- NOTE | ~2024-01-07 | XR_ITS ---
EXAMINATION: XR LUMBOSACRAL SPINE CLINICAL INFORMATION: Chronic low back pain. COMPARISON: None available. TECHNIQUE: Three views of the lumbosacral spine. FINDINGS: -Normal lordosis. No scoliosis. -Partially lumbarized S1 vertebral body. -Alignment is normal without subluxation. -No fracture or focal bony abnormality identified. No pars defects. -Facets appear normally aligned with mild facet arthritis L4-L5 and L5-S1. -Disc space narrowing is mild at L5-S1. Rudimentary disc present at S1-S2. -SI joints appear grossly normal. -Soft tissues appear normal with minimal aortic calcification. -Subtle calcific density overlying the left kidney lower pole may represent a 4 mm renal calculus. XR/XR lumbar spine 2-3V IMPRESSION: -No acute findings in the lumbar spine. No alignment abnormality. -There is a partially lumbarized S1 vertebral body. -Mild disc space narrowing at L5-S1 with mild facet degeneration L4-L5 and L5-S1. -Possible left renal calculus measuring 4 mm. Electronically signed by: Maximo Mims MD 01/31/2024 08:34 AM EDT
[2024-01-08 14:59] LABS: H Pylori Breath Test Negative (Negative)
== END 2024-01-07 13:00 | disposition home or self-care (01) ==
LOC: HO.HHCX 12:59
PROVIDERS: Visit Provider Student in an Organized Health Care Education/Training Program
DX: M54.50 Low back pain, unspecified (principal); G89.29 Other chronic pain; R10.13 Epigastric pain
CPT/HCPCS: 72100; 83013

== ENCOUNTER → 2024-01-14 10:00 | Outpatient (BNV) | payer MEDICAID, SELFPAY | PROVIDERS: PCP Student in an Organized Health Care Education/Training Program; Visit Provider Internal Medicine | DX: Z12.31 Encounter for screening mammogram for malignant neoplasm of breast (principal) | CPT/HCPCS: 77063; 77067 ==

== ENCOUNTER 2024-01-14 11:03 | Outpatient (REF) | payer MEDICAID, SELFPAY ==
--- NOTE | ~2024-01-14 | MM_ITS ---
EXAMINATION: MM SCREENING DIGITAL BREAST TOMOSYNTHESIS, BILATERAL CLINICAL INFORMATION: Screening. Asymptomatic. COMPARISON: Mammography: Comparison is made with available priors TECHNIQUE: Digital breast tomosynthesis is performed in both the craniocaudal and mediolateral oblique views along with computer-aided detection (CAD). Synthesized 2D images are generated from the tomosynthesis. FINDINGS: There are scattered areas of fibroglandular density (ACR BI-RADS breast composition Category b). There are no significant masses, abnormal calcifications, or other abnormalities. MM/MM tomosynthesis screening BI IMPRESSION: No mammographic evidence of malignancy. ASSESSMENT: BI-RADS BI-RADS 1 - Negative RECOMMENDATION: Routine annual mammography screening. 1 year F/U This examination should not preclude the clinical evaluation of a suspicious palpable abnormality. This patient's information was entered into a reminder system with a target due date for their next mammogram. Electronically signed by: Bailey Montoya DO 02/07/2024 03:06 PM EDT
== END 2024-01-14 11:04 | disposition home or self-care (01) ==
LOC: HO.MAMMO 11:03
PROVIDERS: PCP Student in an Organized Health Care Education/Training Program; Visit Provider Student in an Organized Health Care Education/Training Program
DX: Z12.31 Encounter for screening mammogram for malignant neoplasm of breast (principal)
CPT/HCPCS: 77063; 77067

== ENCOUNTER 2024-01-31 11:21 | Outpatient (REF) | payer MEDICAID, SELFPAY ==
--- NOTE | ~2024-01-31 | US_ITS ---
EXAMINATION: US RETROPERITONEAL COMPLETE (RENAL) CLINICAL INFORMATION: Calculus of kidney. COMPARISON: CT of abdomen and pelvis 01/23/2023. TECHNIQUE: Real-time imaging of the kidneys and bladder. FINDINGS: RIGHT KIDNEY: 10.9 x 5.1 x 6.1 cm (SAG x AP x TRV). The kidney is normal in size, contour, and echogenicity. Renal cortical thickness is normal. No calculi or focal parenchymal lesions. No hydronephrosis. LEFT KIDNEY: 11.1 x 5.3 x 4.7 cm (SAG x AP x TRV). The kidney is normal in size, contour, and echogenicity. Renal cortical thickness is normal. No calculi or focal parenchymal lesions. No hydronephrosis. BLADDER: Well distended and normal. Bilateral ureteral jets are demonstrated. Prevoid bladder volume is 174 mL. Postvoid bladder volume is 5 mL. US/US retroperitoneal comp IMPRESSION: Normal exam. Electronically signed by: Jed Broussard MD 02/05/2024 03:12 PM EDT
== END 2024-01-31 11:22 | disposition home or self-care (01) ==
LOC: HO.HMGCX 11:21
PROVIDERS: PCP Student in an Organized Health Care Education/Training Program; Visit Provider Student in an Organized Health Care Education/Training Program
DX: N20.0 Calculus of kidney (principal)
CPT/HCPCS: 76770

== ENCOUNTER → 2024-06-24 11:46 | Outpatient (BNV) | payer MEDICAID, SELFPAY | PROVIDERS: Visit Provider Radiology Diagnostic Radiology | DX: R05.3 Chronic cough (principal) | CPT/HCPCS: 71046 ==

== ENCOUNTER 2025-01-15 10:45 | Outpatient (REF) | payer MEDICAID, SELFPAY ==
--- OUTSIDE RECORDS SUMMARY | 2024-01-04 17:30 | XMS_ITS ---
Author Organization [facility] Address [address] [place], [place] [id number] Care Team Providers Care Visiting Nurse Name Role Phone Petey Goodson Primary Care Provider Kd Quigley Unavailable [phone] MoleAndres Unavailable Unavailable Migration, Provider Unavailable Unavailable REASON FOR VISIT [facility] Conversion Encounter Medications Medication SIG (Take, Route, Frequency, Duration) Notes Start Date End Date Status busPIRone HCl *Please review a nd pick correct strength-formulatio n from Medispan options. If intended option is not shown, discontinue and re-order from Quick Search* Active Abilify *Please review a nd pick correct strength-formulatio n from Medispan options. If intended option is not shown, discontinue and re-order from Quick Search* Active Gabapentin *Please review a nd pick correct strength-formulatio n from Medispan options. If intended option is not shown, discontinue and re-order from Quick Search* Active Lisinopril *Please review a nd pick correct strength-formulatio n from Medispan options. If intended option is not shown, discontinue and re-order from Quick Search* Active Poly-Iron 150 *Please review a nd pick correct strength-formulatio n from Medispan options. If intended option is not shown, discontinue and re-order from Quick Search* Active metFORMIN HCl *Please review a nd pick correct strength-formulatio n from Medispan options. If intended option is not shown, discontinue and re-order from Quick Search* Active Meloxicam 15 MG Tablet 1 tab(s) orally once a day; Duration: 45 day(s) Active Voltaren 1 % Gel 2 g applied topically 4 times a day; Duration: 30 day(s) Active VITAMIN B-50 VITAMIN B COMPLEX TABLET 1 TAB(S) ORALLY ONCE A DAY; Duration: 30 DAY(S) *Please review for potential replacement for e-prescription and drug interaction check* Active glipiZIDE *Please review a nd pick correct strength-formulatio n from Al[employer] options. If intended option is not shown, discontinue and re-order from Quick Search* Active Diclofenac Sodium 75 MG Tablet Delayed Release 1 tab(s) orally 2 times a day; Duration: 30 day(s) Active Creon *Please review a nd pick correct strength-formulatio n from [employer] options. If intended option is not shown, discontinue and re-order from Quick Search* Active Dicyclomine HCl *Please review a nd pick correct strength-formulatio n from [employer] options. If intended option is not shown, discontinue and re-order from Quick Search* Active PT AND/OR OT FOR MODALITIES, PAIN CONTROL DIRECTED PER OT AND/OR PT *Please review for potential replacement for e-prescription and drug interaction check* Active VITAMIN B-50 VITAMIN B COMPLEX TABLET 1 TAB(S) ORALLY ONCE A DAY; Duration: 30 DAY(S) *Please review for potential replacement for e-prescription and drug interaction check* Active Omeprazole *Please review a nd pick correct strength-formulatio n from Al[employer]ens options. If intended option is not shown, discontinue and re-order from Quick Search* Active Topiramate *Please review a nd pick correct strength-formulatio n from Al[employer]Sens options. If intended option is not shown, discontinue and re-order from Quick Search* Active Encounters Encounter Location Date Provider Diagnosis [facility] [address] [id number] 01/04/2024 Provider Migration Plan Of Treatment No Information Progress Notes * Yuly BERMEO DDOB:1970 (54 yo F)Acc No.[id number]:01/04/2024 Patient: Josie Yuly fisher Provider: :1970 A ge:53 Y S ex:Female Date:01/04/2024 [id number] Pcp:Petey Goodson Subjective: * Chief Complaints: * [facility] Conversion Encounter * Medications: T akingPT AND/OR OT FOR MODALITIES, PAIN CONTROL DIRECTED PER OT AND/OR PT , Notes to Pharmacist: *Please review for potential replacement for e-prescription and drug interaction check*VITAMIN B-50 VITAMIN B COMPLEX TABLET 1 TAB(S) ORALLY ONCE A DAY , Notes to Pharmacist: *Please review for potential replacement for e-prescription and drug interaction check*Voltaren 1 % Gel 2 g applied topically 4 times a day Meloxicam 15 MG Tablet 1 tab(s) orally once a day metFORMIN HCl , Notes to Pharmacist: *Please review and pick correct strength-formulation from Medispan options. If intended option is not shown, discontinue and re-order from Quick Search*glipiZIDE , Notes to Pharmacist: *Please review and pick correct strength-formulation from Medispan options. If intended option is not shown, discontinue and re-order from Quick Search*Poly-Iron 150 , Notes to Pharmacist: *Please review and pick correct strength-formulation from Medispan options. If intended option is not shown, discontinue and re-order from Quick Search*Lisinopril , Notes to Pharmacist: *Please review and pick correct strength-formulation from Medispan options. If intended option is not shown, discontinue and re-order from Quick Search*Gabapentin , Notes to Pharmacist: *Please review and pick correct strength-formulation from Medispan options. If intended option is not shown, discontinue and re-order from Quick Search*Abilify , Notes to Pharmacist: *Please review and pick correct strength-formulation from Medispan options. If intended option is not shown, discontinue and re-order from Quick Search*busPIRone HCl , Notes to Pharmacist: *Please review and pick correct strength-formulation from Medispan options. If intended option is not shown, discontinue and re-order from Quick Search*Topiramate , Notes to Pharmacist: *Please review and pick correct strength-formulation from Medispan options. If intended option is not shown, discontinue and re-order from Quick Search*Omeprazole , Notes to Pharmacist: *Please review and pick correct strength-formulation from Medispan options. If intended option is not shown, discontinue and re-order from Quick Search*Dicyclomine HCl , Notes to Pharmacist: *Please review and pick correct strength-formulation from Medispan options. If intended option is not shown, discontinue and re-order from Quick Search*Creon , Notes to Pharmacist: *Please review and pick correct strength-formulation from Medispan options. If intended option is not shown, discontinue and re-order from Quick Search*Diclofenac Sodium 75 MG Tablet Delayed Release 1 tab(s) orally 2 times a day VITAMIN B-50 VITAMIN B COMPLEX TABLET 1 TAB(S) ORALLY ONCE A DAY , Notes to Pharmacist: *Please review for potential replacement for e-prescription and drug interaction check*Taking PT AND/OR OT FOR MODALITIES, PAIN CONTROL DIRECTED PER OT AND/OR PT , Notes to Pharmacist: *Please review for potential replacement for e-prescription and drug interaction check*Taking VITAMIN B-50 VITAMIN B COMPLEX TABLET 1 TAB(S) ORALLY ONCE A DAY , Notes to Pharmacist: *Please review for potential replacement for e-prescription and drug interaction check*Taking Voltaren 1 % Gel 2 g applied topically 4 times a day Taking Meloxicam 15 MG Tablet 1 tab(s) orally once a day Taking metFORMIN HCl , Notes to Pharmacist: *Please review and pick correct strength-formulation from Medispan options. If intended option is not shown, discontinue and re-order from Quick Search*Taking glipiZIDE , Notes to Pharmacist: *Please review and pick correct strength-formulation from Medispan options. If intended option is not shown, discontinue and re-order from Quick Search*Taking Poly-Iron 150 , Notes to Pharmacist: *Please review and pick correct strength-formulation from Medispan options. If intended option is not shown, discontinue and re-order from Quick Search*Taking Lisinopril , Notes to Pharmacist: *Please review and pick correct strength-formulation from Medispan options. If intended option is not shown, discontinue and re-order from Quick Search*Taking Gabapentin , Notes to Pharmacist: *Please review and pick correct strength-formulation from Medispan options. If intended option is not shown, discontinue and re-order from Quick Search*Taking Abilify , Notes to Pharmacist: *Please review and pick correct strength-formulation from Medispan options. If intended option is not shown, discontinue and re-order from Quick Search*Taking busPIRone HCl , Notes to Pharmacist: *Please review and pick correct strength-formulation from Medispan options. If intended option is not shown, discontinue and re-order from Quick Search*Taking Topiramate , Notes to Pharmacist: *Please review and pick correct strength-formulation from Medispan options. If intended option is not shown, discontinue and re-order from Quick Search*Taking Omeprazole , Notes to Pharmacist: *Please review and pick correct strength-formulation from Medispan options. If intended option is not shown, discontinue and re-order from Quick Search*Taking Dicyclomine HCl , Notes to Pharmacist: *Please review and pick correct strength-formulation from Medispan options. If intended option is not shown, discontinue and re-order from Quick Search*Taking Creon , Notes to Pharmacist: *Please review and pick correct strength-formulation from Medispan options. If intended option is not shown, discontinue and re-order from Quick Search*Taking Diclofenac Sodium 75 MG Tablet Delayed Release 1 tab(s) orally 2 times a day Taking VITAMIN B-50 VITAMIN B COMPLEX TABLET 1 TAB(S) ORALLY ONCE A DAY , Notes to Pharmacist: *Please review for potential replacement for e-prescription and drug interaction check* * Electronic signature of Prov ider Migration on 01/15/2025 at 11:24 AM EDT Sign off status: Pending * Provider: Date: 01/04/2024 Generated for Orlando bernard/Delia/Venkat on: 01/15/2025 11:24 AM EDT
--- OUTSIDE RECORDS SUMMARY | 2025-01-15 11:24 | XMS_ITS | Encounter Summary ---
Author Organization [employer] Address [address] [place] [address] Care Team Providers Care Glass Production Machine Operator Name Role Phone Yuly Arce MD Primary Care Pro vider Encounter Details Date Type Department Care Team (Late st Contact Info) Description 01/14/2025 Orders Only [facility] [address] [place], [place] [phone] Yuly Arce MD [address] [place] [address] Health care maintenance (Primary Dx) Social History Tobacco Use Types Packs/Day Years Used Date Smoking Tobacco: Never Passive Smoke Exposure: Never Smokeless Tobacco: Never Alcohol Use Standard Drinks/Week Comments Yes 0 (1 standard drink = 0.6 oz pur e alcohol) social Depression Answer Date Recorded Patient Health Questionnaire-9 Score 0 10/05/2024 Patient Health Questionnaire-9 Score 0 10/05/2024 Last PHQ-9: Questionnaire Data Not on file 0 10/05/2024 Housing Stability Answer Date Recorded What is your housing situation today? I have yadira garcia 10/05/[address] you li ve. Do you have problems with any of the following? I am not sure 10/05/2024 Food Insecurity Answer Date Recorded Within the past 12 months, y ou worried that your food would run out before you got money to buy more: Never True 10/05/2024 Within the past 12 months,th e food you bought just didn't last and you didn't have enough money to get more: Never True Transportation Answer Date Recorded In the past 12 months, has l ack of transportation kept you from medical appts, meetings, work or from getting things needed for daily living? No 10/05/2024 Utilities Answer Date Recorded In the past 12 months, has t he electric, gas, oil or water Qriket threatened to shut off services in your home? No 10/05/2024 Depression Answer Date Recorded Patient Health Questionnaire-2 Score 0 10/05/2024 Internet Access Answer Date Recorded Internet Access Q1 Yes 01/20/2024 Internet Access Q2 Not on file 01/20/2024 Comments No Sex and Gender Information Value Date Recorded Sex Assigned at Female 10/16/2022 2:35 PM EDT Legal Sex Female 2:33 PM EDT Gender Identity Female 10/16/2022 2:35 PM EDT Sexual Orientation Straight 12/06/2022 2: 19 PM EDT documented as of this encounter Plan of Treatment Upcoming Encounters Date Type Department Care Team (Late st Contact Info) Description 01/22/2025 1:30 PM EDT Office Visit [facility] [address] [place] [phone] Yuly Arce MD [address] [place] [phone] 01/26/2025 1:45 PM EDT Procedure Visit [facility] [address] [place] [address] [phone] Muna Arora CNM [address] [place] [phone] Scheduled Orders Name Type Priority Associated Diagnoses Orde r Schedule Albumin, Random Urine W/Creatinine Lab Routine Health care maintenance Expected: 01/14/2025 (Approximate), Expires: 01/14/2026 CBC auto differential Lab Routine Health care maintenance Expected: 01/14/2025 (Approximate), Expires: 01/14/2026 Chlamydia/Trichomonas/Neis seria gonorrhoeae, PCR, Urine Lab Routine Health care maintenance Expected: 01/14/2025 (Approximate), Expires: 01/14/2026 Comprehensive Metabolic Panel Lab Routine Health care maintenance Expected: 01/14/2025 (Approximate), Expires: 01/14/2026 Hemoglobin A1c Lab Routine Health care maintenance Expected: 01/14/2025 (Approximate), Expires: 01/14/2026 Hepatitis B Core Antibody, Total Lab Routine Health care maintenance Expected: 01/14/2025 (Approximate), Expires: 01/14/2026 Hepatitis B Surface Antibody, Qualitative Lab Routine Health care maintenance Expected: 01/14/2025 (Approximate), Expires: 01/14/2026 Hepatitis B surface antigen, EIA Lab Routine Health care maintenance Expected: 01/14/2025 (Approximate), Expires: 01/14/2026 Hepatitis C Antibody with Reflex to HCV, RNA, Quantitative, Real-Time PCR Lab Routine Health care maintenance Expected: 01/14/2025 (Approximate), Expires: 01/14/2026 HIV-1/2 Antigen and Antibodies, Fourth Generation, with Reflexes Lab Routine Health care maintenance Expected: 01/14/2025 (Approximate), Expires: 01/14/2026 Syphilis Screen Lab Routine Health care maintenance Expected: 01/14/2025 (Approximate), Expires: 01/14/2026 Lipid Panel, Standard Lab Routine Health care maintenance Expected: 01/14/2025 (Approximate), Expires: 01/14/2026 TSH with Reflex to Free T4 Lab Routine Health care maintenance Expected: 01/14/2025 (Approximate), Expires: 01/14/2026 Vitamin B12 (Cobalamin) and Folate Panel, Serum Lab Routine Health care maintenance Expected: 01/14/2025 (Approximate), Expires: 01/14/2026 Vitamin D, 25-Hydroxy, Total, Immunoassay Lab Routine Health care maintenance Expected: 01/14/2025 (Approximate), Expires: 01/14/2026 documented as of this encounter Visit Diagnoses Diagnosis Health care maintenance- Primary documented in this encounter Additional Health Concerns Assessment Noted Time PHQ-9 Depression Total Score: 0 10/06/19 25 1:35 PM EDT documented as of this encounter Care Teams Glass Production Machine Operator Relationship Specialty Start Date End Date Yuly Arce MD [address] [place] [phone] PCP - General Internal Medicine 12/12/22 documented as of this encounter
--- OUTSIDE RECORDS SUMMARY | 2025-01-15 11:24 | XMS_ITS | Encounter Summary ---
Author Organization [employer] Address [address] [facility] 7 [place] [address] Care Team Providers Care Garage Construction Equipment Mechanic Name Role Phone Yuly Arce MD Primary Care Pro vider Reason for Visit * Reason Onset Date Comments Med Refill 06/12/2024 Encounter Details Date Type Department Care Team (Late st Contact Info) Description 06/12/2024 Telephone [facility] [address] [place] [address] Yuly Arce MD [address] [place] [address] Med Refill Social History Tobacco Use Types Packs/Day Years Used Date Smoking Tobacco: Never Passive Smoke Exposure: Never Smokeless Tobacco: Never Alcohol Use Standard Drinks/Week Comments Yes 0 (1 standard drink = 0.6 oz pur e alcohol) social Depression Answer Date Recorded Patient Health Questionnaire-9 Score 10 01/07/2024 Patient Health Questionnaire-9 Score 10 01/07/2024 Last PHQ-9: Questionnaire Data Not on file 0 01/07/2024 Housing Stability Answer Date Recorded What is your housing situation today? I do not have housing (Staying with others, in a hotel, in a retirement, living outside on the street, on a beach, in a car, or in a park 09/12/[address] you li ve. Do you have problems with any of the following? Pests such as bugs, ants, or mice 09/12/2023 Food Insecurity Answer Date Recorded Within the past 12 months, y ou worried that your food would run out before you got money to buy more: Often true 09/12/2023 Within the past 12 months,th e food you bought just didn't last and you didn't have enough money to get more: Often true Transportation Answer Date Recorded In the past 12 months, has l ack of transportation kept you from medical appts, meetings, work or from getting things needed for daily living? No 03/05/2023 Utilities Answer Date Recorded In the past 12 months, has t he electric, gas, oil or water company threatened to shut off services in your home? No 03/05/2023 Depression Answer Date Recorded Patient Health Questionnaire-2 Score 3 01/07/2024 Internet Access Answer Date Recorded Internet Access Q1 Yes 01/20/2024 Internet Access Q2 Not on file 01/20/2024 Comments No Sex and Gender Information Value Date Recorded Sex Assigned at Female 10/16/2022 2:35 PM EDT Legal Sex Female 2:33 PM EDT Gender Identity Female 10/16/2022 2:35 PM EDT Sexual Orientation Straight 12/06/2022 2: 19 PM EDT documented as of this encounter Miscellaneous Notes * Telephone Encounter - Randal Castillo - 06/12/2024 8:08 AM EST TC from pt requesting medication refill. Medications needing refill : metFORMIN (Glucophage) 1000 MG tablet To be sent to: [facility] - [place], [place] - [address] [place] [address] documented in this encounter Plan of Treatment Upcoming Encounters Date Type Department Care Team (Late st Contact Info) Description 01/22/2025 1:30 PM EDT Office Visit [facility] [address] [place] [phone] Yuly Arce MD [address] [place] [phone] 01/26/2025 1:45 PM EDT Procedure Visit [facility] [address] [place] [phone] Muna Arora CNM [address] [place] [phone] documented as of this encounter Visit Diagnoses Not on filedocumented in this encounter Additional Health Concerns Assessment Noted Time PHQ-9 Depression Total Score: 10 024 11:18 AM EDT documented as of this encounter Care Teams Garage Construction Equipment Mechanic Relationship Specialty Start Date End Date Yuly Arce MD [address] [place] [phone] PCP - General Internal Medicine 12/12/22 documented as of this encounter
--- OUTSIDE RECORDS SUMMARY | 2025-01-15 11:24 | XMS_ITS | Patient Health Record ---
Author Organization [facility] Address [address] [place], [place] [phone] Care Team Providers Care Dredge Mate Name Role Phone Petey Goodson Primary Care Provider Kd Quigley Unavailable [phone] Andres Wilson Unavailable Unavailable Reason For Referral No Information Medications Medication SIG (Take, Route, Frequency, Duration) Notes Start Date End Date Status metFORMIN HCl *Please review a nd pick correct strength-formulatio n from MD-IT options. If intended option is not shown, discontinue and re-order from Quick Search* Active Diclofenac Sodium 75 MG Tablet Delayed Release 1 tab(s) orally 2 times a day; Duration: 30 day(s) Active Meloxicam 15 MG Tablet 1 tab(s) orally once a day; Duration: 45 day(s) Active Creon *Please review a nd pick correct strength-formulatio n from MD-IT options. If intended option is not shown, discontinue and re-order from Quick Search* Active Voltaren 1 % Gel 2 g applied topically 4 times a day; Duration: 30 day(s) Active Dicyclomine HCl *Please review a nd pick correct strength-formulatio n from [employer] options. If intended option is not shown, discontinue and re-order from Quick Search* Active VITAMIN B-50 VITAMIN B COMPLEX TABLET 1 TAB(S) ORALLY ONCE A DAY; Duration: 30 DAY(S) *Please review for potential replacement for e-prescription and drug interaction check* Active Omeprazole *Please review a nd pick correct strength-formulatio n from MD-IT options. If intended option is not shown, discontinue and re-order from Quick Search* Active PT AND/OR OT FOR MODALITIES, PAIN CONTROL DIRECTED PER OT AND/OR PT *Please review for potential replacement for e-prescription and drug interaction check* Active Topiramate *Please review a nd pick correct strength-formulatio n from Medispan options. If intended option is not shown, discontinue and re-order from Quick Search* Active busPIRone HCl *Please review a nd pick [...] discontinue and re-order from Quick Search* Active VITAMIN B-50 VITAMIN B COMPLEX TABLET 1 TAB(S) ORALLY ONCE A DAY; Duration: 30 DAY(S) *Please review for potential replacement for e-prescription and drug interaction check* Active glipiZIDE *Please review a nd pick correct strength-formulatio n from Medispan options. If intended option is not shown, discontinue and re-order from Quick Search* Active Social History Social History Additional Details Category Social Info Options Details Social History Occupation: unemployed Joe Drew 03/22/2014 3:16:50 PM > Alcohol: no Jeo Drew 03/22/2014 3:16:47 PM > Recreational drugs no Denies use of any narcotic or recreational drug Joe Drew 03/22/2014 3:16:54 PM > Fall risk not at risk Joe Drew 03/22/2014 3:16:57 PM > Problems Problem Type SNOMED Code ICD Code Onset Dates Problem Status W/U Status Risk Notes Problem Diabetes mellitu s type 2 or unspecified type with unspecified manifestation (250.92) Active confirmed Problem Cubital tunnel syndrome (103479885) Cubital tunnel syndrome (354.2) Active confirmed Problem Hypertension (36726825) Hypertension (401.9) Active confirmed Problem Carpal tunnel syndrome (74262960) Carpal tunnel syndrome (354.0) Active confirmed Problem Trigger finger (0746849) Trigger finger (727.03) Active confirmed Plan Of Treatment No Information Insurance Providers Payer Name Payer Address Payer Phone Subscriber Number Group Number Insured Name Patient Relationship to Insured Coverage Start Date Coverage End Date [employer] [address] [address] [place] [address] [id number] Yuly Muhammad Self - patient is the insured Medical (General) History Medical History History ICD Code Anxiety disorder Bipolar depression diabetes mallitus - Is a [facility] risk factor for infections following surgeries GERD Pancreatic disorder Hypertension Surgical History Surgery Date(Month/Year) C section x3 Right breast lumpectomy Right carpal tunnel release and a right cubital tunnel release. RCTR R Cub TR R thumb mass excision R Medial Epicondyle osteotomy Hospitalization History Reason Date(Month/Year) For For studies Above listed surgeries
--- OUTSIDE RECORDS SUMMARY | 2025-01-15 11:24 | XMS_ITS | Encounter Summary ---
Author Organization [employer] Address [address] [facility] 7 [place] [address] Care Team Providers Care Silver Service Waiter Name Role Phone Yuly Arce MD Primary Care Pro vider Reason for Visit * Reason Comments Med Refill Encounter Details Date Type Department Care Team (Late st Contact Info) Description 10/05/2024 Refill [facility] [address] [place], [place] [phone] Yuly Arce MD [address] [place] [address] Controlled type 2 diabetes with neuropathy (CMS/[facility]) Social History Tobacco Use Types Packs/Day Years [...] PM EDT documented as of this encounter Functional Status * Over the past 2 weeks, how often have you been bothered by any of the following problems? Question Answer Date of Assessment Author Patient Health Questionnaire -2 Score 0 10/05/2024 1:35 PM EDT Cathy Hankins MA * Little interest or pleasure in doing things Answer Date of Assessment Author Not at all 10/05/2024 1:35 PM EDT Demario Hankins MA * Feeling down, depressed, or hopeless Answer Date of Assessment Author Not at all 10/05/2024 1:35 PM EDT Demario Hankins MA * Trouble falling or staying asleep, or sleeping too much Answer Date of Assessment Author Not at all 10/05/2024 1:35 PM EDT Demario Hankins MA * Feeling tired or having little energy Answer Date of Assessment Author Not at all 10/05/2024 1:35 PM EDT Demario Hankins MA * Poor appetite or overeating Answer Date of Assessment Author Not at all 10/05/2024 1:35 PM EDT Demario Hankins MA * Feeling bad about yourself - or that you are a failure or have let yourself or your family down Answer Date of Assessment Author Not at all 10/05/2024 1:35 PM EDT Demario Hankins MA * Trouble concentrating on things, such as reading the newspaper or watching television Answer Date of Assessment Author Not at all 10/05/2024 1:35 PM EDT Demario Hankins MA * Moving or speaking so slowly that other people could have noticed? Or the opposite - being so fidgety or restless that you have been moving around a lot more than usual. Answer Date of Assessment Author Not at all 10/05/2024 1:35 PM EDT Demario Hankins MA * Thoughts that you would be better off or hurting yourself in some way Answer Date of Assessment Author Not at all 10/05/2024 1:35 PM EDT Demario Hankins MA * Patient Health Questionnaire-9 Score Answer Date of Assessment Author 0 10/05/2024 1:35 PM EDT Demario Hankins MA * Over the last 2 weeks, how often have you been bothered by any of the following problems? Question Answer Date of Assessment Author Feeling nervous, anxious, or on edge 0 10/05/2024 1:35 PM EDT Cathy Hankins MA Not being able to stop or co ntrol worrying 0 10/05/2024 1:35 PM EDT Cathy Hankins MA Worrying too much about diff erent things 0 10/05/2024 1:35 PM EDT Cathy Hankins MA Trouble relaxing 0 10/05/2024 1:35 PM EDT Cathy Thornton MA Being so restless that it is hard to sit still 0 10/05/2024 1:35 PM EDT Cathy Hankins MA Becoming easily annoyed or irritable 0 10/05/2024 1:35 PM EDT Cathy Hankins MA Feeling afraid as if somethi ng awful might happen 0 10/05/2024 1:35 PM EDT Cathy Hankins MA HERMELINDA-7 Total Score 0 10/05/2024 1:35 PM EDT Cathy Hankins MA documented as of this encounter Plan of Treatment Upcoming Encounters Date Type Department Care Team (Late st Contact Info) Description 01/22/2025 1:30 PM EDT Office Visit [facility] [address] [place], [place] [phone] Yuly Arce MD [address] [place], [place] [phone] 01/26/2025 1:45 PM EDT Procedure Visit [facility] [address] [place] [address] Muna Arora CNM [address] [place], [place] [phone] documented as of this encounter Visit Diagnoses Diagnosis Controlled type 2 diabetes with neuropathy ([facility]) Type II or unspecified type diabetes mellitus with neurological manifestations, not stated as uncontrolled documented in this encounter Additional Health Concerns Assessment Noted Time PHQ-9 Depression Total Score: 0 10/06/19 25 1:35 PM EDT documented as of this encounter Care Teams Silver Service Waiter Relationship Specialty Start Date End Date Yuly Arce MD [address] [place] [address] PCP - General Internal Medicine 12/12/22 documented as of this encounter
--- OUTSIDE RECORDS SUMMARY | 2025-01-15 11:24 | XMS_ITS | Clinical Summary ---
Author Organization [employer] Address [address] [facility] [address] [place] [address] Care Team Providers Care Chef Instructor Name Role Phone Yuly Arce MD Primary Care Pro vider Allergies No known active allergies Medications * This document contains information received from the source organization and may not represent a complete record from that organization. Blood Glucose Monitoring Suppl (FreeStyle Lite) device Inject under the skin in the morning. Test daily before all meals/snacks and once before bedtime. 1 each 12/07/19 23 Active Alcohol Sheets (Alcoh-Wipe) sheet Test daily before all meals/snacks and once before bedtime. 100 each 12/07/19 23 Active Alcohol Swabs (Easy Touch Alcohol Prep Medium) 70 % pads USE DIRECTED TO TEST BLOOD SUGAR TWICE DAILY 100 each 11 02/29/20 23 Active FreeStyle lancets 1 each by Other route in the morning. Use bid, dx type 2 diabetes 100 each 11 02/29/20 23 Active glucose blood (FREESTYLE LITE) test strip TEST BLOOD SUGAR TWICE A DAY. Dx diabetes 100 each 11 02/29/20 23 Active QUEtiapine (SEROquel) 100 MG tabletIndications: Bipolar affective disorder, remission status unspecified (CMS/HCC) TAKE 1 TABLET BY MOUTH DAILY AT BEDTIME 30 tablet 2 03/21/20 23 Active lamoTRIgine (LaMICtal) 100 MG tabletIndications: Bipolar disorder, unspecified (CMS/HCC) TAKE 1 TABLET BY MOUTH DAILY IN THE MORNING 30 tablet 2 06/25/19 24 Active FLUoxetine (PROzac) 40 MG capsuleIndications :Bipolar affective disorder, remission status unspecified (CMS/HCC) TAKE 1 CAPSULE BY MOUTH DAILY IN THE MORNING 30 capsule 2 06/28/19 24 Active Diclofenac Sodium 1 % gel Apply 1 Application topically if needed each day (knee pain). 50 g 01/07/20 24 Active famotidine (Pepcid) 20 MG tablet Take 1 tablet (20 mg) by mouth 2 times daily. 60 tablet 1 01/07/20 24 Active hydrOXYzine HCl (Atarax) 25 MG tablet TAKE 1 OR 2 TABLETS BY MOUTH EVERY DAY AT BEDTIME NEEDED FOR SLEEP 08/26/19 25 Active ketorolac (Acular) 0.5 % ophthalmic solution PLACE 1 DROP IN THE AFFECTED EYE THREE TIMES DAILY. START 2 DAYS BEFORE SURGERY AND CONTINUE DIRECTED 07/21/19 25 Active lidocaine (Lidoderm) 5 % patchIndications:C hronic right-sided low back pain without sciatica Apply 1 patch topically Once per day. Remove & discard patch within 12 hours or as directed by MD. 30 patch 2 10/06/19 25 Active ezetimibe (Zetia) 10 MG tabletIndications: Controlled type 2 diabetes with neuropathy (CMS/HCC) Take 1 tablet (10 mg) by mouth Once per day. 90 tablet 10/06/19 25 026 Active metFORMIN (Glucophage) 1000 MG tabletIndications: Controlled type 2 diabetes with neuropathy (CMS/HCC) Take 1 tablet (1,000 mg) by mouth with breakfast and with evening meal. 180 tablet 10/06/19 25 Active atorvastatin (Lipitor) 80 MG tabletIndications: Hyperlipidemia, unspecified hyperlipidemia type Take 1 tablet (80 mg) by mouth Once per day. 90 tablet 10/06/19 25 Active dapagliflozin (Farxiga) 5 MG Take 1 tablet (5 mg) by mouth in the morning. 90 tablet 10/06/19 25 Active albuterol 108 (90 Base) MCG/ACT inhaler Inhale 2 puffs every 6 (six) hours if needed for wheezing. 18 g 10/06/19 25 026 Active gabapentin (Neurontin) 800 MG tabletIndications: Controlled type 2 diabetes with neuropathy (CMS/HCC) Take 1 tablet (800 mg) by mouth 4 times daily. 360 tablet 2 10/06/19 25 Active Active Problems Problem Noted Date Diagnosed Date Overweight (BMI 25.0-29.9) 10/05/2024 Chronic cough 06/24/2024 Assessment & Plan (06/24/2024 12:30 PM EST): Chronic cough since URI without change in symptoms. Pt denies SOB, GERD sx or allergy symptoms. -course of azithromycin 06/24/24 -CXR ordred -pulmonary referral placed 06/24/24 Elevated vitamin B12 level 09/20/2023 Right knee pain 09/20/2023 Hand pain 07/02/2023 Chronic lower back pain 01/08/2023 Assessment & Plan (01/08/2023 6:21 PM EDT): Reports having lately acute on chronic lower back pain localized more to her right side associated with movement ,denies trauma,denies numbness/tingling in Les, nor urinary or rectal incontinence -likely symptoms are muscular in nature with no abnormal neurologic exam and no concerning symptoms -advised pt to use warm compressess in area of pain -tylenol prn for mild pain and lidoderm patches px today -referred today to PT -alarm signs ands symptoms discussed with pt Frequent falls 12/07/2022 Assessment & Plan (01/08/2023 6:23 PM EDT): 11/2022 ESR And CRP are wnl -pt w freq falls possible from neuropathy-denies joint pain -referred already to neurology and offered RW but refused , ok to use a cane-requested already to nurse staff -will check w pt at next apt if got it Assessment & Plan (12/07/2022 6:00 PM EDT): -pt w freq falls possible from neuropathy-denies joint pain -referred today to neurology and offered RW but refused , ok to use a cane-requested today to nurse staff Anxiety 12/06/2022 Memory loss 12/06/2022 Assessment & Plan (01/08/2023 6:13 PM EDT): Pt reports concern x memory loss -referred to neurologist x memory loss and severe neuropathy -has apt for 01/16/2023 Assessment & Plan (12/06/2022 11:35 PM EDT): Pt reports concern x memory loss -referred today to neurologist x memory loss and severe neuropathy Health care maintenance 12/06/2022 Overview (01/08/2023): Assessment & Plan (01/08/2023 6:24 PM EDT): -.menoapuse:hx of uterine ca s/p resection -pap smear:per pt was still having pap smears? -referred here w [facility] -MM 01/2021;BIRADS 2-referred already -has apt this month -colonoscopy: per pt 7 y ago-had polyps -referred to GI already -apt for this month per pt -vaccines:s/P covid x2 -Biv x1, s/p tdap 11/2022 and p20 , hep B not immune- refuse vaccination ---- -annual labs exam done in 11/2022 To be scanned in system-not seen in [facility]--vit B 12 elevated at 1983--pt taking OTC vit B 12 -advised that if wants to take to decrease use to 3 times a week -reports hx of thyroid nodules-referred x thyroid [facility] 12/2022 :Normal size homogeneous thyroid gland without a focal nodule. 1.6 cm enlarged benign-appearing lymph node is seen in the right side of the neck. --will discuss this benign result w pt at her next apt -MRI left shoulder w/o contrast 2019( from [place] record) : findings of adhesive capsulitis ,mild subacromial subdeltoid bursal inflammation with bursitis -right elbow XR 2019: well cortical bony density adjacent to the lateral epicondyle measuring 6 mm which could represent a sequela of prior avulsion injury. History of uterine cancer 12/06/2022 Assessment & Plan (01/08/2023 6:19 PM EDT): hx of uterine ca s/p resection in 2011 States she never f up w oncologist after had surgery -referred x CT abd/pelvis -has apt in 01/22/2023 -f up here in 8 weeks Assessment & Plan (12/06/2022 11:41 PM EDT): hx of uterine ca s/p resection in 2011 States she never f up w oncologist after had surgery -referred today x CT abd/pelvis Hyperlipidemia 10/16/2022 Controlled type 2 diabetes with neuropathy 10/16 Assessment & Plan (01/08/2023 6:23 PM EDT): 11/2022 HB1ac 5.6, LDL 102, Microalb neg Am cortisol was wnl -podiatry and opthalmology referral already ( both scheduled for this month) -will continue metformin -stop glipizide 5 mg and start farxiga 5 mg daily ( denies hx of recurrent UTIs or vaginal infections) ,reports hx of pancreatitis so will hold on GLP1 -continue current dose of statins -if in 3 mo still LDL> 100 will increase dose -advised to bring CBgs readings in 8 weeks -DM labs in 3 mo Assessment & Plan (12/07/2022 5:59 PM EDT): -will do DM labs -pt return in fasting -podiatry and opthalmology referral -continue current meds-eventually will plan to dc glipizide and change to SGLT2 and GLP1 w no contraindications -advised to bring CBgs readings -check am cortisol x questionable cushingoid features Bipolar disorder 10/16/2022 Assessment & Plan (01/08/2023 6:13 PM EDT): Pt w Bipolar dx ,anxiety and per who evaluated eval pt pt reported some visual hallucinations ,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 Reports having episodes of extreme anxiety in the past that has episodes of blindness ,seen for this per pt mx times in the hospital at [place] and reports had normal neuro workup. -reports severe neuropathy in LEs , used to f w neurologist in [place] on high doses of gabapentin. 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 Denies SI PHQ9:9 -continue meds -BH evaluated today and to refer to outpt psychotx and psychiatrist -pt w memory loss so will hold on referral to psycho pharm here -advised to call 911 if any SI and received crisis # info in case of emergency Assessment & Plan (12/06/2022 4:28 PM EDT): Assessment: Patient with history of bipolar disorder (severe depressed mood with manic episodes, insomnia, diagnosed by psychiatrist in [place]), occasional visual hallucinations (a person standing in her room, no auditory hallucinations, not directive), anxiety (racing thoughts, difficult to control worry, and nervousness), and panic attacks (periods of intense anxiety in which she feels it is difficult to breath, has loss of vision and hearing, and body posturing). Symptoms are in the context of biopsychosocial stressors of chronic disease (diabetes) and shared housing. Patient will benefit from OP therapy, psychiatry, and additional coping mechanisms. At this time Yuly Butler meets criteria for Visit Diagnoses: Problem List Items Addressed This Visit Other Bipolar disorder ([facility]) Anxiety Patient ready to address current needs Yes Strengths- Yuly is open and engaged. She is in the preparation stage of change. PLAN: 1. Follow up with [facility] [place]: Not recommended for follow-up 2. Patient goal is to engage in OP therapy and medication management 3. Behavioral Recommendations a. Deep breathing b. Grounding c. Breaking down tasks into smaller pieces Insomnia 10/16/2022 Resolved Problems Problem Noted Date Diagnosed Date Resolved Date Chest pain 04/04/2023 10/05/2024 Encounters Date Type Department Care Team Description 01/14/2025 Orders Only [facility] [address] [place] [phone] Yuly Arce MD Health care maintenance (Primary Dx) 01/14/2025 Telephone [facility] [address] [place] [phone] Yuly Arce MD Telephone call 12/11/2024 Telephone [facility] [address] [place] [phone] Yuly Arce MD Referral 11/03/2024 Telephone [facility] [address] [place] [address] Rachael Perales OD from Last 3 Months Immunizations Immunization Administration Dates Next Due Influenza injectable quadrivalent preservative f ree 04/03/2023 Pfizer Covid-19 Vaccine 12+ 07/01/2023 Pfizer Covid-19 Vaccine 12+ Bivalent 12/06/2022 Pneumococcal Conjugate PCV 20 12/06/2022 Tdap 12/06/2022 Zoster, Recombinant 01/21/2024 Family History * Patient is adopted Medical History Relation Name Comments DM2,seizure, physchiatric disease Mother Relation Name Status Comments Mother Social History Tobacco Use Types Packs/Day Years Used Date Smoking Tobacco: Never Passive Smoke Exposure: Never Smokeless Tobacco: Never Tobacco Cessation:Counseling Given: Not Answered Alcohol Use Standard Drinks/Week Comments Yes 0 [...] Orientation Straight 12/06/2022 2: 19 PM EDT Last Filed Vital Signs Vital Sign Reading Time Taken Comments Blood Pressure 135/76 10/05/2024 1:04 PM EDT Pulse 79 10/05/2024 1:04 PM EDT Temperature 36.4 C (97.5 F) 10/05/2024 1:04 PM EDT Respiratory Rate 20 10/05/2024 1:04 PM EDT Oxygen Saturation 98% 10/05/2024 1:04 PM EDT Inhaled Oxygen Concentration - - Weight 72.6 kg (160 lb) 10/05/2024 1:04 PM EDT Height 162.6 cm (5' 4 ) 10/05/2024 1:04 PM EDT Body Mass Index 27.46 10/05/2024 1:04 PM EDT Plan of Treatment Upcoming Encounters Date Type Department Care Team (Late st Contact Info) Description 01/22/2025 1:30 PM EDT Office Visit [facility] [address] [place] [phone] Yuly Arce MD [address] [place] [phone] 01/26/2025 1:45 PM EDT Procedure Visit [facility] [address] [place] [phone] Muna Mcrae CNM [address] [place] [phone] Health Maintenance Due Date Last Done Comments CT Colonography 1970 FIT DNA/Cologuard 1970 FIT 1970 FOBT 1970 HIV Screening 1970 Sigmoidoscopy 1970 Diabetes: Foot Exam 1980 Hepatitis C Screening 1988 Hepatitis B Vaccines (1 of - + 3-dose series) 1989 COVID-19 Vaccine ( season) 2024 07/01/2023, 12/06/2022 Diabetes: Urine Protein Screening 03/05/2024 03/05/2023, 12/11/2022 Zoster Vaccines (2 of 2) 03/17/2024 01/21/2024 Lipid Panel 07/25/2024 07/26/2023, 03/05/2023 Diabetes: Hemoglobin A1C 09/03/2024 025, 01/07/2024, 07/26/2023, Additional history exists Influenza Vaccine (#1) 2025 04/03/2023 Alcohol/Substance Use Screening 10/05/2025 10/05/2024 Depression Screening 10/05/2025 10/05/2024, 10/06/19 Disability Screening 10/05/2025 10/05/2024 SDOH Screening 10/05/2025 10/05/2024 Tobacco Screening 10/05/2025 10/05/2024 Mammogram 01/13/2026 01/14/2024, 082 09/2022, 01/11/2023 Eye Exam 01/22/2026 01/23/2024, 09/0 09/2023, 01/23/2024, Additional history exists HPV/Cotest 03/27/2028 03/27/2023 Pap Smear 03/27/2028 03/27/2023 Colonoscopy 03/19/2030 03/19/2023 Colorectal Cancer Screening 03/19/2030 DTaP/Tdap/Td Vaccines (2 - Td or Tdap) 12/06/2032 12/06/2022 RSV Patients and Patients Aged 60 years or older (1 - 1-dose 75+ series) 2045 Pneumococcal Vaccine: 50+ Years Completed 12/06/2022 HIB Vaccines Aged Out No longer eligi ble based on patient's age to complete this topic HPV Vaccines Aged Out No longer eligi ble based on patient's age to complete this topic Hepatitis A Vaccines Aged Out No long er eligible based on patient's age to complete this topic IPV Vaccines Aged Out No longer eligi ble based on patient's age to complete this topic Meningococcal B Vaccine Aged Out No l onger eligible based on patient's age to complete this topic Meningococcal Vaccine Aged Out No teresa vee eligible based on patient's age to complete this topic RSV under 20 months Aged Out No longe r eligible based on patient's age to complete this topic Rotavirus Vaccines Aged Out No longer eligible based on patient's age to complete this topic Procedures Procedure Name Priority Date/Time Associated Diagnosis Comments POCT GLYCATED HEMOGLOBIN, TOTAL Routine 06/05/2024 2:53 PM EST Controlled type 2 diabetes with neuropathy (CMS/HCC) BI MAMMOGRAM SCREENING TOMOSYNTHESIS BILATERAL Routine 01/14/2024 11:10 AM EDT LIPID PANEL, STANDARD Routine 07/26/2023 10:05 AM EST Controlled type 2 diabetes with neuropathy (CMS/HCC) HPV MRNA E6/E7 REFLEX TO HPV 16, 18/45 Routine 03/27/2023 10:38 AM EST Controlled type 2 diabetes with neuropathy (CMS/HCC) PAP SMEAR Routine 03/27/2023 10:38 AM EST Controlled type 2 diabetes with neuropathy (CMS/HCC) HM COLONOSCOPY Routine 03/19/2023 ALBUMIN, RANDOM URINE W/CREATININE Routine 03/05/2023 12:21 PM EDT Controlled type 2 diabetes with neuropathy (CMS/HCC) from Last 3 Months or Most Recently Relevant to Health Maintenance Results * (ABNORMAL) POCT HGB A1C (06/05/2024 2:53 PM EST) Hemoglobin A1C 7.8(A) 4.0 - 6.0 % QC Media Lot # [id number] Lot# Expiration Date [id number] Blood 06/05/2024 2:53 PM EST Jas Munguia MD POINT OF CARE TEST ENTER/ED IT ORDERABLES Final Result * BI Mammogram Screening Tomosynthesis Bilateral (01/14/2024 11:10 AM EDT) Anatomical Region Laterality Modality Breast Bilateral Mammography 01/14/2024 11:1 0 AM EDT Narrative 02/07/2024 3:09 PM EDT [place] [address] [place] [address] Mammography Report Signed Patient: Yuly Nair MR#: [id number] : 1970 Acct:[id number] Age/Sex: 53 / F ADM Date: 01/14/24 Loc: HO.MAMMO Attending Dr: Yuly King MD Ordering Physician: Yuly Arce MD Re sults: 1Negative Date of Service: 01/14/24 Follow Up: 1 Year From Orig inal Mammogram Procedure(s): MM tomosynthesis screening BI Accession Number(s): [id number] cc: Yuly Arce MD EXAMINATION: MM SCREENING DIGITAL BREAST TOMOSYNTHESIS, BILATERAL CLINICAL INFORMATION: Screening. Asymptomatic. COMPARISON: Mammography: Comparison is made with available priors TECHNIQUE: Digital breast tomosynthesis is performed in both the craniocaudal and mediolateral oblique views along with computer-aided detection (CAD). Synthesized 2D images are generated from the tomosynthesis. FINDINGS: There are scattered areas of fibroglandular density (ACR BI-RADS breast composition Category b). There are no significant masses, abnormal calcifications, or other abnormalities. MM/MM tomosynthesis screening BI IMPRESSION: No mammographic evidence of malignancy. ASSESSMENT: BI-RADS BI-RADS 1 - Negative RECOMMENDATION: Routine annual mammography screening. 1 year F/U This examination should not preclude the clinical evaluation of a suspicious palpable abnormality. This patient's information was entered into a reminder system with a target due date for their next mammogram. Electronically signed by: Bailey Montoya DO 02/07/2024 03:06 PM EDT Dictated By: Bailey Montoya DO Signed By: <Electronically signed by Bailey Montoya DO in OV> 02/07/24 1506 DD/ 1110 TD/TT: 01/14/24 1125 Finish Repair Worker: Procedure Note Donotuseinterpreter, Image - 02/07/2024 [facility] [address] [place], [place] [address] Mammography Report Signed Patient: Yuly Nair DMR#: [id number] : 1970Acct:[id number] Age/Sex: 53 / FADM Date: 01/14/24 Loc: HO.MAMMO Attending Dr: Yuly King MD Ordering Physician: Yuly Arce sults: 1Negative Date of Service: 01/14/24Follow Up: 1 Year From Orig inal Mammogram Procedure(s): MM tomosynthesis screening BI Accession Number(s): [id number] cc: Yuly Arce MD EXAMINATION: MM SCREENING DIGITAL BREAST TOMOSYNTHESIS, BILATERAL CLINICAL INFORMATION: Screening. Asymptomatic. COMPARISON: Mammography: Comparison is made with available priors TECHNIQUE: Digital breast tomosynthesis is performed in both the craniocaudal and mediolateral oblique views along with computer-aided detection (CAD). Synthesized 2D images are generated from the tomosynthesis. FINDINGS: There are scattered areas of fibroglandular density (ACR BI-RADS breast composition Category b). There are no significant masses, abnormal calcifications, or other abnormalities. MM/MM tomosynthesis screening BI IMPRESSION: No mammographic evidence of malignancy. ASSESSMENT: BI-RADS BI-RADS 1 - Negative RECOMMENDATION: Routine annual mammography screening. 1 year F/U This examination should not preclude the clinical evaluation of a suspicious palpable abnormality. This patient's information was entered into a reminder system with a target due date for their next mammogram. Electronically signed by: Bailey Montoya DO 02/07/2024 03:06 PM EDT Dictated By: Bailey Montoya DO Signed By: <Electronically signed by Bailey Montoya DO in OV> 02/07/24 1506 DD/ 1110 TD/TT: 01/14/24 1125 Finish Repair Worker: Yuly King MD IMG BI PROCEDURES Edited Result - Final * (ABNORMAL) Lipid Panel, Standard (07/26/2023 10:05 AM EST) Triglycerides 90 <150 mg/dL [facility] Comment:Desirable Triglyceri de: less than 150 mg/dLBorderline High Triglyceride 150-199 mg/dLHigh Triglyceride: 200-499 mg/dLVery High Triglyceride: greater than or equal to 5OO mg/dL Cholesterol 239(H) <200 mg/dL [facility] Comment:Desirable Cholestero l: less than 200 mg/dLBorderline High Cholesterol: 200-239 mg/dLHigh Cholesterol: greater than 239 mg/dL LDL Cholesterol Calculated 149(H) <100 mg/dL [facility] Comment:Desirable LDL: less than 100 mg/dLNear Optimal/Above Optimal LDL: 110- 129 mg/dLBorderline High LDL: 130-159 mg/dLHigh LDL: 160-189 mg/dLVery High LDL: greater than or equal to 190 mg/dL HDL Cholesterol 72 >40 mg/dL [facility] Comment:Desirable HDL: great er than 40 mg/dL Note: This HDL assay may give artificially low results in patients with liver disease. Blood Venous blood specimen / Unknown 07/26/2023 10:05 AM EST 07/26/2023 11:27 AM EST Yuly King MD LAB BLOOD ORDERAB LES Final Result [facility] [address] [place] [phone] * HPV mRNA E6/E7 w/Reflex to HPV Genotypes 16, 18/45 (03/27/2023 10:38 AM EST) HPV nRNA E6/E7 Not Detected Not Detected [facility] Comment:Methodology: Transcr iption-Mediated AmplificationThis assay detects E6/E7 viral messenger RNA (mRNA) from 14high-risk HPV types (16,18,31,33,35,39,45,51,52,56,58,59,66,68).Cervical sources are required for HPV testing.If a vaginal source from a patient who has had atotal hysterectomy with removal of cervix wassubmitted, please contact the testing laboratoryfor alternative testing options.For additional information, please refer [email or web address](This link if provided for information/educational purposes only.)THIS TEST WAS PERFORMED AT:[address] [place] [id number] BASHIR MD HPV mRNA E6/E7 TNP [facility] HPV 16 RNA TNP [facility] HPV 18/45 RNA [facility] 03/27/2023 10:3 8 AM EST 03/28/2023 10:55 AM EST Muna Mcrae CNM LAB CYTOLOGY ORDERABLES F inal Result [facility] [address] [place] [address] [phone] * Pap Smear (03/27/2023 10:38 AM EST) 03/27/2023 10:3 8 AM EST 03/28/2023 10:55 AM EST Narrative [facility] - 04/17/2023 1:46 PM EST ----- ------- Name: Yuly Nair Age/Sex: 52/F : 1970 Unit#: [id number] Attend Dr: MUNA MCRAE CNM Re03/27/23 Status: DEP [facility] Disch: ----- ------- SPEC : [id number] RECD: 03/28/23 STATUS: JARED CHANG NUM: [id number] JAIME: 03/27/23-1038 [facility] DR: MUNA MCRAE Josie ENTERED: 03/28/23-1219 SP TYPE: Pap Smr OT DR: ORDERED: Pap Smear Interpretation Satisfactory for evaluation. Negative for intraepithelial lesion or malignancy. HPV mRNA E6/E7: NOT DETECTED This assay detects E6/E7 viral messenger RNA (mRNA) from 14 high-risk HPV types (16, 18, 31, 33, 35, 39, 45, 51, 52, 56, 58, 59, 66, 68) HPV testing performed by [employer], [place], [place]. See reference laboratory portion of the EMR for entire report. Clinical Information LMP: Unknown date Previous PAP test: Unknown date/findings Other surgery: S/p hysterectomy for uterine cancer Material Received ThinPrep-Vaginal ----- ------- Signed (signature on file) ANN Sewell (ASC) 04/17/23 1346 ----- ------- END OF REPORT Muna CARMONA LAB CYTOLOGY ORDERABLES F inal Result Performing Organization Address City/[facility]/ZIP Co de Phone Number [facility] [address] [place] [address] [phone] * Hm Colonoscopy (03/19/2023) Colonoscopy Normal Normal Narrative Dilia Espinosa - 03/19/2023 Recommended repeat in 7-10 years see external hospital admission note on 03/19/2023 Historical Provider MD HEALTH MAINTENANCE Final Result * Albumin, Random Urine W/Creatinine (03/05/2023 12:21 PM EDT) Creatinine, Urine 106.90 mg/dL [facility] Microalbumin Urine 8.0 mg/L [facility] Microalbum Creatinine Ratio Ur 7.4 <30 ug/mg cr [facility] Comment:Albumin/Creatinine R atio Reference Ranges: Normal: < 30 ug/mg creatinine Microalbuminuria: 30 - 300 ug/mg creatinineClinical Albuminuria: > 300 ug/mg creatinine 03/05/2023 12:2 1 PM EDT 03/05/2023 1:35 PM EDT Yuly King MD LAB URINE ORDERAB LES Final Result Performing Organization Address City/[facility]/ZIP Co de Phone Number [facility] [address] [place] [address] [phone] from Last 3 Months or Most Recently Relevant to Health Maintenance Insurance [facility] Care Teams Chef Instructor Relationship Specialty Start Date End Date Yuly Arce MD [address] [place] [phone] PCP - General Internal Medicine 12/12/22
--- OUTSIDE RECORDS SUMMARY | 2025-01-15 11:24 | XMS_ITS | Encounter Summary ---
Author Organization [employer] Address 75 [facility] 7 [place] [address] Care Team Providers Care Curve Saw Operator Name Role Phone Yuly Arce MD Primary Care Pro vider Reason for Referral * Imaging (Routine) - Closed Specialty Diagnoses / Procedures Referred By Contac t Referred To Contact Radiology Diagnoses Kidney stone Procedures US Retroperitoneal Complete Yuly Arce MD [address] [place] [address] Phone: tel: fax: [address] Phone: tel: fax: Referral ID Status Reason Start Date Expiration Date Visits Re quested Visits Authorized [id number] Closed 01/07/2024 01/06/2025 1 1 Encounter Details Date Type Department Care Team (Late st Contact Info) Description 01/07/2024 Orders Only [facility] [address] [place] [id number] Yuly Arce MD [address] [place] [address] [phone] Kidney stone (Primary Dx) Social History Tobacco Use Types [...] with others, in a hotel, in a prison, living outside on the street, on a [...] Recorded Patient Health Questionnaire-2 Score 3 01/07/2024 Comments No Sex and Gender Information Value [...] Assessment Author Patient Health Questionnaire -2 Score 3 01/07/2024 11:18 AM EDT Cathy Hankins MA * Over the last 2 weeks, how often have you been bothered by any of the following problems? Question Answer Date of Assessment Author Feeling nervous, anxious, or on edge 3 01/07/2024 11:19 AM CECILIOT Cathy Hankins MA Not being able to stop or co ntrol worrying 3 01/07/2024 11:19 AM Cathy Kaminski MA Worrying too much about diff erent things 3 01/07/2024 11:19 AM Cathy Kaminski MA Trouble relaxing 3 01/07/2024 11:19 AM Cathy Kaminski MA Being so restless that it is hard to sit still 3 01/07/2024 11:19 AM Cathy Kaminski MA Becoming easily annoyed or irritable 3 01/07/2024 11:19 AM Cathy Kaminski MA Feeling afraid as if somethi ng awful might happen 3 01/07/2024 11:19 AM Cathy Kaminski MA HERMELINDA-7 Total Score 21 01/07/2024 11:19 AM Cathy Kaminski MA * Over the past 2 weeks, how often have you been bothered by any of the following problems? Question Answer Date of Assessment Author Little interest or pleasure in doing things More than half the days 01/07/2024 11:18 AM Cathy Kaminski MA Feeling down, depressed, or hopeless Several days 01/07/2024 11:18 AM Cathy Kaminski MA Trouble falling or staying asleep, or sleeping too much More than half the days 01/07/2024 11:18 AM Cathy Kaminski MA Feeling tired or having little energy Several days 01/07/2024 11:18 AM Cathy Kaminski MA Poor appetite or overeating Not at all 01/07/2024 11:18 AM Cathy Kaminski MA Feeling bad about yourself - or that you are a failure or have let yourself or your family down Several days 01/07/2024 11:18 AM Cathy Kaminski MA Trouble concentrating on things, such as reading the newspaper or watching television Nearly every day 01/07/2024 11:18 AM Cathy Kaminski MA Moving or speaking so slowly that other people could have noticed? Or the opposite - being so fidgety or restless that you have been moving around a lot more than usual. Not at all 01/07/2024 11:18 AM EDT Cathy Hankins MA Thoughts that you would be better off or hurting yourself in some way Not at all 01/07/2024 11:18 AM EDT Cathy Hankins MA Patient Health Questionnaire-9 Score 10 01/07/2024 11:18 AM EDT Cathy Hankins MA documented as of this encounter Miscellaneous Notes * Result Encounter Note - Yuly King MD - 01/07/2024 5:17 PM EDT Please inform pt renal/bladder US is normal -thanks * Result Encounter Note - Yuly King MD - 01/07/2024 5:17 PM EDT Please inform pt of normal mammogram result thanks documented in this encounter Plan of Treatment Upcoming Encounters Date Type Department Care Team (Late st Contact Info) Description 01/22/2025 1:30 PM EDT Office Visit [facility] [address] [place] [phone] Yuly Arce MD [address] [place] [address] 01/26/2025 1:45 PM EDT Procedure Visit [facility] [address] [place] [address] Muna Arora CNM [address] [place] [address] documented as of this encounter Procedures Procedure Name Priority Date/Time Associated Diagnosis Comments US RETROPERITONEAL COMPLETE Routine 01/31/2024 11:30 AM EDT Kidney stone BI MAMMOGRAM SCREENING TOMOSYNTHESIS BILATERAL Routine 01/14/2024 11:10 AM EDT documented in this encounter Results * US Retroperitoneal Complete (01/31/2024 11:30 AM EDT) Anatomical Region Laterality Modality Ultrasound 01/31/2024 11:3 0 AM EDT Narrative 02/05/2024 3:15 PM EDT [facility] [address] [place] [address] [place] [address] Ultrasound Report Signed Patient: Yuly Nair MR#: [id number] : 1970 Acct:[id number] Age/Sex: 53 / F ADM Date: 01/31/24 Loc: HO.HMGCX Attending Dr: Yuly King MD Ordering Physician: Yuly Arce MD Date of Service: 01/31/24 Procedure(s): US retroperitoneal comp Accession Number(s): [id number] cc: Yuly Arce MD EXAMINATION: US RETROPERITONEAL COMPLETE (RENAL) CLINICAL INFORMATION: Calculus of kidney. COMPARISON: CT of abdomen and pelvis 01/23/2023. TECHNIQUE: Real-time imaging of the kidneys and bladder. FINDINGS: RIGHT KIDNEY: 10.9 x 5.1 x 6.1 cm (SAG x AP x TRV). The kidney is normal in size, contour, and echogenicity. Renal cortical thickness is normal. No calculi or focal parenchymal lesions. No hydronephrosis. LEFT KIDNEY: 11.1 x 5.3 x 4.7 cm (SAG x AP x TRV). The kidney is normal in size, contour, and echogenicity. Renal cortical thickness is normal. No calculi or focal parenchymal lesions. No hydronephrosis. BLADDER: Well distended and normal. Bilateral ureteral jets are demonstrated. Prevoid bladder volume is 174 mL. Postvoid bladder volume is 5 mL. US/US retroperitoneal comp IMPRESSION: Normal exam. Electronically signed by: Jed Broussard MD 02/05/2024 03:12 PM EDT Dictated By: Jed Broussard MD Signed By: <Electronically signed by Jed Broussard MD in OV> 02/05/24 1512 DD/ 1130 TD/TT: 01/31/24 1202 [employer] Cake Decorator: PABLO Procedure Note Donotuseinterpreter, Image - 02/05/2024 [facility] [address] [place] [address] [place] [address] Ultrasound Report Signed Patient: Yuly Nair DMR#: [id number] : 1970Acct:[id number] Age/Sex: 53 / FADM Date: 01/31/24 Loc: HO.HMGCX Attending Dr: Yuly King MD Ordering Physician: Yuly Arce MD Date of Service: 01/31/24 Procedure(s): US retroperitoneal comp Accession Number(s): [id number] cc: Yuly Arce MD EXAMINATION: US RETROPERITONEAL COMPLETE (RENAL) CLINICAL INFORMATION: Calculus of kidney. COMPARISON: CT of abdomen and pelvis 01/23/2023. TECHNIQUE: Real-time imaging of the kidneys and bladder. FINDINGS: RIGHT KIDNEY: 10.9 x 5.1 x 6.1 cm (SAG x AP x TRV). The kidney is normal in size, contour, and echogenicity. Renal cortical thickness is normal. No calculi or focal parenchymal lesions. No hydronephrosis. LEFT KIDNEY: 11.1 x 5.3 x 4.7 cm (SAG x AP x TRV). The kidney is normal in size, contour, and echogenicity. Renal cortical thickness is normal. No calculi or focal parenchymal lesions. No hydronephrosis. BLADDER: Well distended and normal. Bilateral ureteral jets are demonstrated. Prevoid bladder volume is 174 mL. Postvoid bladder volume is 5 mL. US/US retroperitoneal comp IMPRESSION: Normal exam. Electronically signed by: Jed Broussard MD 02/05/2024 03:12 PM EDT Dictated By: Jed Broussard MD Signed By: <Electronically signed by Jed Broussard MD in OV> 02/05/24 1512 DD/ 1130 TD/TT: 01/31/24 1202 [employer] Dec[employer]ator: PABLO us Yuly King MD IMG US PROCEDURES Final Result * BI Mammogram Screening Tomosynthesis Bilateral (01/14/2024 11:10 AM EDT) Anatomical Region Laterality Modality Breast Bilateral Mammography 01/14/2024 11:1 0 AM EDT Narrative 02/07/2024 3:09 PM EDT [facility] [address] [place] [address] Mammography Report Signed Patient: Yuly Nair MR#: [id number] : 1970 Acct:[id number] Age/Sex: 53 / F ADM Date: 01/14/24 Loc: HO.MAMMO Attending Dr: Yuly King MD Ordering Physician: Yuly Arce MD Re sults: 1Negative Date of Service: 01/14/24 Follow Up: 1 Year From Orig ina Mammogram Procedure(s): MM tomosynthesis screening BI Accession Number(s): [id number] cc: Yuly Arce MD EXAMINATION: MM SCREENING [...] 02/07/24 1506 DD/ 1110 TD/TT: 01/14/24 1125 [employer] Decorator: Procedure Note Donotuseinterpreter, Image - 02/07/2024 [facility] [address] [place] [address] [place] [address] Mammography Report Signed Patient: Yuly Nair DMR#: [id number] : 1970Acct:[id number] Age/Sex: 53 / FADM Date: 01/14/24 Loc: HO.MAMMO Attending Dr: Yuly King MD Ordering Physician: Yuly Arce sults: 1Negative Date of Service: 01/14/24Follow Up: 1 Year From Orig inal Mammogram Procedure(s): MM tomosynthesis screening BI Accession Number(s): [id number] cc: Yuly Arce MD EXAMINATION: MM SCREENING [...] 02/07/24 1506 DD/ 1110 TD/TT: 01/14/24 1125 [employer] Decorator: us Yuly King MD IMG BI PROCEDURES Edited Result - Final documented in this encounter Visit Diagnoses Diagnosis Kidney stone- Primary Calculus of kidney documented in this encounter Additional Health Concerns Assessment Noted Time PHQ-9 Depression Total Score: 10 024 11:18 AM EDT documented as of this encounter Care Teams Curve Saw Operator Relationship Specialty Start Date End Date Yuly Arce MD [address] [place] [address] PCP - General Internal Medicine 12/12/22 documented as of this encounter
--- OUTSIDE RECORDS SUMMARY | 2025-01-15 11:24 | XMS_ITS | Patient Health Record ---
Author Organization [employer] Address [address] [address] Care Team Providers Care Senior Network Architect Name Role Phone Yuly Baez Unavailable [phone] Allergies No Known Allergies Reason For Referral No Information Medications Medication SIG (Take, Route, Frequency, Duration) Notes Start Date End Date Status Atorvastatin Calcium 10 MG Tablet 1 tablet Orally Once a day Active Omeprazole 20 MG Capsule Delayed Release 1 capsule Orally Once a day Active Ibuprofen 800 MG Tablet 1 tablet with fo od or milk as needed Orally bid; Duration: 14 days Active metFORMIN HCl 1000 MG Tablet 1 tablet with meals Orally Twice a day Active lamoTRIgine 100 MG Tablet 1 tablet Orall y Twice a day Active Xanax 2 MG Tablet 1 tablet Orally Twic e a day Active Gabapentin 800 MG Tablet TAKE ONE TABLET BY MOUTH THREE TIMES A DAY; Duration: 90 Active glipiZIDE 5 MG Tablet 1 tablet Orally On ce a day; Duration: 90 days Active Nabumetone 500 MG Tablet 1 tablet Orally Twice a day; Duration: 14 days Active Atorvastatin Calcium 20 MG Tablet 1 tablet Orally Once a day Active Losartan Potassium 25 MG Tablet 1 TABLET ONCE A DAY ORALLY 90 DAYS; Duration: 90 Active PARoxetine HCl 10 MG Tablet 1 tablet in the morning Orally Once a day Active Social History Tobacco Use: Social History Observation Description Date Details (start date - stop date) Never Smoker NA - NA Social History Tobacco Use Social Info Question Answer Notes Tobacco Use/Smoking Are you a nonsmoker Additional Findings: Tobacco Non-User Current no n-smoker Tobacco use other than smoking: Are you an other tobac co user? No Drugs/Alcohol: Social Info Question Answer Notes Alcohol Screen (Audit-C) Did you have a drink containing alcohol in the past year? No Points 0 Interpretation Negative Drugs Have you used drugs other than those for medical reasons in the past 12 months? No Caffeine Intake: none Additional Details Category Social Info Options Details Drugs/Alcohol: Do you smoke marijuana? De nies Do you drink alcohol? 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) Active confirmed Problem Glaucoma associated with systemic syndromes (45928785) Glaucoma in diseases classified elsewhere (H42) Active confirmed Problem Fibromyalgia (567348357) Fibromyalgia (M79.7) Active confirmed Problem Diabetic peripheral neuropathy associated with type 2 diabetes mellitus (4412131334090) Type 2 diabetes mellitus with diabetic neuropathy, without long-term current use of insulin (E11.40) Active confirmed Problem Essential hypertension (38996853) Essential hypertension (I10) Active confirmed Problem Gastroesophageal reflux disease without esophagitis (133216372) Gastroesophageal reflux disease without esophagitis (K21.9) Active confirmed Problem Hyperglycemia due to type 2 diabetes mellitus (352567552147565) Type 2 diabetes mellitus with hyperglycemia, without long-term current use of insulin (E11.65) Active confirmed Problem Type 2 diabetes mellitus with other specified complication, without long-term current use of insulin (E11.69) Active confirmed HYPERLIPIDE JASBIR ASSOCIATED WITH T2DM. Problem Moderate recurrent major depression (38853623) Moderate episode of recurrent major depressive disorder (F33.1) Active confirmed Problem Mild recurrent major depression (86286386) Depression, major, recurrent, mild (F33.0) Active confirmed Problem Cataract (257162955) Cataract of right eye, unspecified cataract type (H26.9) Active confirmed Problem Panic disorder (704949852) Panic disorder [episodic paroxysmal anxiety] (F41.0) Active confirmed Problem Sleep disorder (99405863) Sleep disorder (G47.9) Active confirmed Problem Generalized anxiety disorder (38452169) HERMELINDA (generalized anxiety disorder) (F41.1) Active confirmed Problem Type 2 diabetes mellitus with peripheral angiopathy (066715859) Diabetes mellitus with peripheral angiopathy (E11.51) Active confirmed Problem Bipolar affective disorder, currently depressed, moderate (041961473) Bipolar affective disorder, currently depressed, moderate (F31.32) Active confirmed Problem Ischemic stroke (483137884) Ischemic stroke (I63.9) Active confirmed Problem Rotator cuff impingement syndrome (031230794) Rotator cuff impingement syndrome (M75.101) Active confirmed Plan Of Treatment Pending Test Test Name Order Date Hospital Discharge Visit 11/11/2019 SARS-CoV-2 Antibody, IgG 11/23/2019 Future Test Test Name Order Date PCP - Diabetic Retinal Exam ([facility]) 2018 Xray: Shoulder 2 Views (Left) 10/06/2019 MRI : Shoulder, left 10/21/2019 CBC With Differential/Platelet Urinalysis, Complete 11/29/2020 TSH 11/29/2020 Lipid Panel 11/29/2020 CMP {Comprehensive Metabolic Panel} (14) 11/29/2020 Insurance Providers Payer Name Payer Address Payer Phone Subscriber Number Group Number Insured Name Patient Relationship to Insured Coverage Start Date Coverage End Date [facility] [address] [address] [place] [address] [id number] Yuly Nair Self - patient is the insured Medical (General) History Medical History History ICD Code Arthritis Fibromyalgia Diabetes Mellitus Surgical History Surgery Date(Month/Year) C-Secction 1989,1988,1987 Hysterectomy 2011 Cyst breast (L) 2010 Cholecystectomy 2006 Carpel tunel (R) hand 2011
--- OUTSIDE RECORDS SUMMARY | 2025-01-15 11:24 | XMS_ITS | Encounter Summary ---
Author Organization [employer] Address 75 [facility] 7 [place] [address] Care Team Providers Care Advertising Production Manager Name Role Phone Yuly Arce MD Primary Care Pro vider Reason for Visit * Reason Onset Date Comments Telephone call 01/14/2025 Encounter Details Date Type Department Care Team ([facility] st Contact Info) Description 01/14/2025 Telephone [facility] [address] [place] [address] Yuly Arce MD [address] [place] [address] Telephone call Social History Tobacco Use Types Packs/Day Years [...] encounter Miscellaneous Notes * Telephone Encounter - Fallon May RN - 01/14/2025 1:31 PM EDT Telephone call placed to pt. Informed labs ordered to be done fasting at least a couple days prior to her next scheduled appt. Pt verbalized understanding and denied having any further questions or concerns at this time. Labs reorder please request to be done in fasting Thanks * Telephone Encounter - Yayo Bolton - 01/14/2025 9:20 AM EDT Patient walked in because she was under the impression her doctor was ordering a lab panel for her upcoming appt on 01/22, upon checking chart no active. documented in this encounter Plan of Treatment Upcoming Encounters Date Type Department Care Team (Late st Contact Info) Description 01/22/2025 1:30 PM EDT Office Visit [facility] [address] [place] [address] [phone] Yuly Arce MD [address] [place] [address] [phone] 01/26/2025 1:45 PM EDT Procedure Visit [facility] [address] [place] [address] [phone] Muna Arora CNM [address] [place] [address] documented as of this encounter Visit Diagnoses Not on filedocumented in this encounter Additional Health Concerns Assessment Noted Time PHQ-9 Depression Total Score: 0 10/06/19 25 1:35 PM EDT documented as of this encounter Care Teams Advertising Production Manager Relationship Specialty Start Date End Date Yuly Arce MD [address] [place] [address] PCP - General Internal Medicine 12/12/22 documented as of this encounter
[2025-01-15 13:34] LABS: MANUAL DIFF FLAG NO
[2025-01-15 13:35] LABS: Hematocrit 43.9 % (37.0-47.0); Hemoglobin 15.2 g/dl (12.0-16.0); Imm Gran Abs Auto 0.04 X10*3/uL (0.00-0.03); Imm Gran Pct Auto 0.6 % (0.0-0.4); Lymphocytes Absolute Auto 1.9 X10*3/uL (1.2-4.9); Mean Corpuscular HGB Conc 34.6 g/dl (31.0-35.0); Mean Corpuscular Hemoglobin 32.2 pg (27.0-33.0); Mean Corpuscular Volume 93.0 fL (80.0-98.0); NRBC Abs Auto 0.000 X10*3/uL (0.0-0.012); NRBC Pct Auto 0.0 /100WBC (0.0-0.2); Platelet Count 341 X10*3/uL (160-400); Red Blood Count 4.72 X10*6/uL (4.20-5.50); White Blood Count 6.8 X10*3/uL (4.8-10.8)
[2025-01-15 13:55] LABS: Hemoglobin A1C 215.7808 umol/L; Total Hemoglobin (HGBA1C) 3937.6717 umol/L
[2025-01-15 14:09] LABS: Alanine Aminotransferase 47 U/L (0-31); Albumin Level 4.8 g/dL (3.5-5.0); Alkaline Phosphatase 85 U/L (39-117); Anion Gap 13 (12-20); Aspartate Amino Transferase 27 U/L (5-31); Blood Urea Nitrogen 14 mg/dL (9-16); Calcium 9.7 mg/dL (8.4-10.2); Carbon Dioxide 26 mmol/L (22-29); Chloride 107 mmol/L (96-108); Cholesterol 151 mg/dL (<200); Estimated Glomerular Filt Rate > 60; HDL Cholesterol 51 mg/dL (>40); Potassium 4.0 mmol/L (3.3-5.1); Sodium 142 mmol/L (135-145); Total Protein 6.9 g/dL (6.5-8.0); Triglycerides 111 mg/dL (<150)
[2025-01-15 14:26] LABS: Folate 11.3 ng/mL (> or = 4.0); Vitamin B12 775 pg/mL (200-900)
[2025-01-15 16:09] LABS: CT PCR Urine NOT DETECTED (Not Detect.); NG PCR Urine NOT DETECTED (Not Detect.)
[2025-01-16 03:27] LABS: Syphilis Screen Nonreactive (Nonreactive)
[2025-01-16 03:53] LABS: HBS Num1 0.83 mIU/mL (0-7.99); HBc Num1 0.14 S/CO (0.00-0.79); HBsAGNum1 0.46 S/CO (0.00-0.99); HIV Num 1 0.07 S/CO (0.00-0.99); Hepatitis B Surface Antigen Negative (Negative); ~HepC Num1 0.08 S/CO (0.00-0.79); ~Hepatitis B Surface Antibody NONREACTIVE (Nonreactive); ~Hepatitis C Antibody Nonreactive (Nonreactive)
== END 2025-01-15 10:46 | disposition home or self-care (01) ==
LOC: HO.HHCL 10:45
PROVIDERS: PCP Student in an Organized Health Care Education/Training Program; Visit Provider Student in an Organized Health Care Education/Training Program
DX: Z00.00 Encounter for general adult medical examination without abnormal findings (principal); Z11.3 Encounter for screening for infections with a predominantly sexual mode of transmission; Z11.8 Encounter for screening for other infectious and parasitic diseases; Z11.59 Encounter for screening for other viral diseases; Z11.4 Encounter for screening for human immunodeficiency virus [HIV]
CPT/HCPCS: 80053; 80061; 82043; 82306; 82570; 82607; 82746; 83036; 84443; 85025; 86704; 86706; 86780; 86803; 87340; 87389; 87491; 87591

== ENCOUNTER 2025-01-28 14:40 | Outpatient (REF) | payer MEDICAID, SELFPAY ==
--- OUTSIDE RECORDS SUMMARY | 2024-01-04 17:30 | XMS_ITS ---
Author Organization [facility] Address [address] [place], [place] [id number] Care Team Providers Care Skin Care Consultant Name Role Phone Petey Goodson Primary Care Provider Kd Quigley Unavailable [phone] MoleAndres Unavailable Unavailable Migration, Provider Unavailable Unavailable [facility] Encounter Medications Medication SIG (Take, Route, [...] a nd pick correct strength-formulatio n from Exepron options. If intended option is not shown, discontinue and re-order from Quick Search* Active Diclofenac Sodium 75 MG Tablet Delayed Release 1 tab(s) orally 2 times a day; Duration: 30 day(s) Active Creon *Please review a nd pick correct strength-formulatio n from Exepron options. If intended option is not shown, discontinue and re-order from Quick Search* Active Dicyclomine HCl *Please review a nd pick correct strength-formulatio n from Exepron options. If intended option is not shown, [...] a nd pick correct strength-formulatio n from Exepron options. If intended option is not shown, discontinue and re-order from Quick Search* Active Topiramate *Please review a nd pick correct strength-formulatio n from Exepron options. If intended option is not shown, discontinue and re-order from Quick Search* Active Encounters Encounter Location Date Provider Diagnosis [facility] [address] [phone] 01/04/2024 Provider Migration Plan Of Treatment No Information Progress Notes * Yuly BERMEO DDOB:1970 (54 yo F)Acc No.[id number]:01/04/2024 Patient: Josie Yuly fisher Provider: :1970 A ge:53 Y S ex:Female Date:01/04/2024 [id number] Pcp:Petey Goodson Subjective: * Chief Complaints: * [...] Electronic signature of Prov ider Migration on 01/28/2025 at 06:19 PM EDT Sign off status: Pending * Provider: Date: 0 01/04/2024 Generated for Orlando bernard/Dleia/Venkat on: 01/28/2025 06:19 PM EDT
--- OUTSIDE RECORDS SUMMARY | 2025-01-26 13:45 | XMS_ITS | Encounter Summary ---
Author Organization [employer] Address 75 [facility] 7t [place] [address] Care Team Providers Care Stone Gluer Name Role Phone Yuly Arce MD Primary Care Pro vider Reason for Visit * Reason Comments Gynecologic Exam Pelvic exam Encounter Details Date Type Department Care Team (Latest Contact Info) Description 01/26/2025 1:45 PM EDT Procedure Visit [facility] [address] [place] [address] Muna Arora CNM [address] [place] [address] Atrophic vaginitis (Primary Dx); Pelvic and perineal pain Social History Tobacco Use Types Packs/Day Years Used Date Smoking Tobacco: Never Passive Smoke Exposure: Never Smokeless Tobacco: Never Alcohol Use Standard Drinks/Week Comments Not Currently 0 (1 standard drink = 0.6 oz [...] PM EDT documented as of this encounter Last Filed Vital Signs Vital Sign Reading Time Taken Comments Blood Pressure 130/72 01/26/2025 2:02 PM EDT Pulse 88 01/26/2025 2:02 PM EDT Temperature 36.4 C (97.6 F) 01/26/2025 2:02 PM EDT Respiratory Rate 20 01/26/2025 2:02 PM EDT Oxygen Saturation - - Inhaled Oxygen Concentration - - Weight 68.9 kg (152 lb) 01/26/2025 2:02 PM EDT Height 162.6 cm (5' 4 ) 01/26/2025 2:02 PM EDT Body Mass Index 26.09 01/26/2025 2:02 PM EDT documented in this encounter Progress Notes * Muna Arora CNM - 01/26/2025 1:45 PM EDT Subjective Patient ID: Yuly Butler is a 54 y.o. female who presents for pelvic pain Here with son who remained for visit. Notes pain with sex for the past year. Tried OTC lubricants, not helpful. No other vaginal/urinary symptoms. Pap NIL/HPV neg 03/2023. No uterus or ovaries seen on CT 2022 (likely total hysterectomy for uterine cancer). Mammogram BIRADS 1 cat b 01/2024 Review of Systems Gastrointestinal: Negative for constipation and diarrhea. Genitourinary: Positive for dyspareunia. Negative for dysuria, pelvic pain, vaginal bleeding, vaginal discharge and vaginal pain. Objective BP 130/72 (BP Location: Left arm, Patient Position: Sitting, BP Cuff Size: Adult) Pulse 88 Temp97.6 ??F (36.4 ??C) (Oral) Resp 20 Ht 5' 4 (1.626 m) Wt 152 lb (68.9 kg) BMI 26.09 kg/m?? Physical Exam Document Improvement Specialist present: declines postbed stitcher. Constitutional: Appearance: Normal appearance. Abdominal: Tenderness: There is no abdominal tenderness. There is no guarding or rebound. Genitourinary: General: Normal vulva. Labia: Right: No rash, tenderness, lesion or injury. Left: No rash, tenderness, lesion or injury. Vagina: Normal. No signs of injury and foreign body. No vaginal discharge, erythema, tenderness, bleeding or lesions. Cervix: No cervical motion tenderness, discharge, friability, lesion, erythema, cervical bleeding or eversion. Uterus: Normal. Not enlarged and not tender. Adnexa: Right adnexa normal and left adnexa normal. Right: No mass, tenderness or fullness. Left: No mass, tenderness or fullness. Comments: Atrophic changes vaginally. Vaginismus and tenderness of all pelvic floor muscle groups. No tenderness of adductors, no vulvodynia or vestibulodynia Neurological: Mental Status: She is alert. Psychiatric: Mood and Affect: Mood normal. Behavior: Behavior normal. Assessment/Plan Diagnoses and all orders for this visit: Atrophic vaginitis Trial vaginal estrogen. Reviewed use. Followup in 1 month. Will reassess pelvic floor, consider dilator therapy. Pelvic and perineal pain Trial vaginal estrogen. Reviewed use. Followup in 1 month. Will reassess pelvic floor, consider dilator therapy. Other orders - estradiol (Estrace) 0.1 MG/GM vaginal cream; 1g vaginally x 14d, then twice weekly thereafter documented in this encounter Plan of Treatment Upcoming Encounters Date Type Department Care Team (Late st Contact Info) Description 04/06/2025 1:00 PM EST Office Visit [facility] [address] [place] [address] Muna Arora CNM [address] [place] [address] documented as of this encounter Visit Diagnoses Diagnosis Atrophic vaginitis- Primary Postmenopausal atrophic vaginitis Pelvic and perineal pain documented in this encounter Additional Health Concerns Assessment Noted Time PHQ-9 Depression Total Score: 0 10/06/19 25 1:35 PM EDT documented as of this encounter Care Teams Stone Gluer Relationship Specialty Start Date End Date Yuly Arce MD [address] [place] [address] PCP - General Internal Medicine 12/12/22 documented as of this encounter
--- NOTE | ~2025-01-28 | MM_ITS ---
EXAMINATION: MM SCREENING DIGITAL BREAST TOMOSYNTHESIS, BILATERAL CLINICAL INFORMATION: Screening. Asymptomatic. COMPARISON: Mammography: Comparison is made with available priors TECHNIQUE: Digital breast mammography with tomosynthesis is performed in both the craniocaudal and mediolateral oblique views along with computer-aided detection (CAD). FINDINGS: There are scattered areas of fibroglandular density (ACR BI-RADS breast composition Category b). There are no significant masses, abnormal calcifications, or other abnormalities. MM/MM tomosynthesis screening BI IMPRESSION: No mammographic evidence of malignancy. ASSESSMENT: BI-RADS BI-RADS 1 - Negative RECOMMENDATION: Routine annual mammography screening. 1 year F/U This examination should not preclude the clinical evaluation of a suspicious palpable abnormality. This patient's information was entered into a reminder system with a target due date for their next mammogram. Electronically signed by: Bailey Montoya DO 02/02/2025 09:53 AM EDT
--- OUTSIDE RECORDS SUMMARY | 2025-01-28 18:18 | XMS_ITS | Encounter Summary ---
Author Organization [employer] Address 75 [facility] 7t [place] [address] Care Team Providers Care Tire Worker Name Role Phone Yuly Arce MD Primary Care Pro vider Encounter Details Date Type Department Care Team (Latest Contact Info) Description 01/26/2025 Travel Social History Tobacco Use Types Packs/Day Years [...] Description 04/06/2025 1:00 PM EST Office Visit [facility] [address] [place] [address] Muna Arora CNM [address] [place], [place] [phone] documented as of this encounter Visit Diagnoses Not on filedocumented in this encounter Additional Health Concerns Assessment Noted Time PHQ-9 Depression Total Score: 0 10/06/19 25 1:35 PM EDT documented as of this encounter Care Teams Tire Worker Relationship Specialty Start Date End Date Yuly Arce MD [address] [place], [place] [phone] PCP - General Internal Medicine 12/12/22 documented as of this encounter
--- OUTSIDE RECORDS SUMMARY | 2025-01-28 18:18 | XMS_ITS | Encounter Summary ---
Author Organization [employer] Address [address] [place] [address] 7[address] [place] [address] Care Team Providers Care Gas Engine Operator Name Role Phone Yuly Arce MD Primary Care Pro vider Reason for Referral * Imaging (Routine) - Closed Specialty Diagnoses / Procedures Referred By Jose waters Referred To Contact Radiology Diagnoses Kidney stone Procedures US Retroperitoneal Complete Yuly Arce MD [address] [place] [address] Phone: tel: fax: [address] Phone: tel: fax: Referral ID Status Reason Start Date Expiration Date Visits Re quested Visits Authorized [id number] Closed 01/07/2024 01/06/2025 1 1 Encounter Details Date Type Department Care Team (Late st Contact Info) Description 01/07/2024 Orders Only [facility] [address] [place] [address] [phone] Yuly Arce MD [address] [place], [place] [phone] Kidney stone (Primary Dx) Social History Tobacco [...] with others, in a hotel, in a correction, living outside on the street, on a [...] the past 12 months, has t he [employer] gas, oil or water company threatened to [...] or on edge 3 01/07/2024 11:19 AM EDT Cathy Hankins [place] Not being able to stop or co ntrol worrying 3 01/07/2024 11:19 AM EDT Cathy Hankins [place] Worrying too much [...] Description 04/06/2025 1:00 PM EST Office Visit [facility] [address] [place] [address] Muna Arora CN [address] [place] [address] documented as of this encounter Procedures Procedure Name Priority Date/Time Associated Diagnosis Comments US RETROPERITONEAL COMPLETE Routine 01/31/2024 11:30 AM EDT Kidney stone BI MAMMOGRAM SCREENING TOMOSYNTHESIS BILATERAL Routine 01/14/2024 11:10 AM EDT documented in this encounter Results * US Retroperitoneal Complete (01/31/2024 11:30 AM EDT) Anatomical Region Laterality Modality Ultrasound 01/31/2024 11:3 0 AM EDT Narrative 02/05/2024 3:15 PM EDT [facility] [address] [place] [address] [place] [address] Ultrasound Report Signed Patient: Yuly Nair MR#: [id number] : 1970 Acct:[id number] Age/Sex: 53 / F ADM Date: 01/31/24 Loc: HO.HMGCX Attending Dr: Yuly King MD Ordering Physician: Yuly Arce MD Date of Service: 01/31/24 Procedure(s): US retroperitoneal comp Accession Number(s): [id number] cc: Yuly Arce MD EXAMINATION: US RETROPERITONEAL [...] 02/05/24 1512 DD/ 1130 TD/TT: 01/31/24 1202 Tactical Air Control Party Manager: PABLO Procedure Note Donotuseinterpreter, Image - 02/05/2024 [facility] Adult Primary Care [address] [place] [address] [place] [address] Ultrasound Report Signed Patient: Yuly Nair DMR#: [id number] : 1970Acct:[id number] Age/Sex: 53 / FADM Date: 01/31/24 Loc: HO.HMGCX Attending Dr: Yuly King MD Ordering Physician: Yuly Arce MD Date of Service: 01/31/24 Procedure(s): US retroperitoneal comp Accession Number(s): [id number] cc: Yuly Arce MD EXAMINATION: US RETROPERITONEAL [...] 02/05/24 1512 DD/ 1130 TD/TT: 01/31/24 1202 Tactical Air Control Party Manager: SS Yuly King MD IMG US PROCEDURES Final Result * BI Mammogram Screening Tomosynthesis Bilateral (01/14/2024 11:10 AM EDT) Anatomical Region Laterality Modality Breast Bilateral Mammography 01/14/2024 11:1 0 AM EDT Narrative 02/07/2024 3:09 PM EDT [address] [place] [address] Mammography Report Signed Patient: Yuly Nair MR#: [id number] : 1970 Acct:[id number] Age/Sex: 53 / F ADM Date: 01/14/24 Loc: HO.MAMMO Attending Dr: Yuly King MD Ordering Physician: Yuly Arce MD Re sults: 1Negative Date of Service: 01/14/24 Follow Up: 1 Year From Orig inal Mammogram Procedure(s): MM tomosynthesis screening BI Accession Number(s): [id number] cc: Yuly Arce MD EXAMINATION: MM SCREENING [...] Montoya DO Signed By: <Electronically signed by aBiley Montoya DO in [place]> 02/07/24 1506 DD/ 1110 TD/TT: 01/14/24 1125 Tactical Air Control Party Manager: Procedure Note Donotuseinterpreter, Image - 02/07/[address] [place] [address] Mammography Report Signed Patient: Yuly Nair DMR#: [id number] : 1970Acct:[id number] Age/Sex: 53 / FADM Date: 01/14/24 Loc: HO.MAMMO Attending Dr: Yuly King MD Ordering Physician: Yuly Arce sults: 1Negative Date of Service: 01/14/24Follow Up: 1 Year From Orig inal Mammogram Procedure(s): MM tomosynthesis screening BI Accession Number(s): [id number] cc: Yuly Arce MD EXAMINATION: MM SCREENING [...] 02/07/24 1506 DD/ 1110 TD/TT: 01/14/24 1125 Tactical Air Control Party Manager: us Yuly King MD IMG BI PROCEDURES Edited Result - Final documented in this encounter Visit Diagnoses Diagnosis Kidney stone- Primary Calculus of kidney documented in this encounter Additional Health Concerns Assessment Noted Time PHQ-9 Depression Total Score: 10 024 11:18 AM EDT documented as of this encounter Care Teams Gas Engine Operator Relationship Specialty Start Date End Date Yuly Arce MD [address] [place] [address] PCP - General Internal Medicine 12/12/22 documented as of this encounter
--- OUTSIDE RECORDS SUMMARY | 2025-01-28 18:18 | XMS_ITS | Encounter Summary ---
Author Organization [employer] Address [address] [facility] 7t [place] [address] Care Team Providers Care Seed Cutter Name Role Phone Yuly Arce MD Primary Care Pro vider Reason for Visit * Reason Onset Date Comments chart prep 01/25/2025 Encounter Details Date Type Department Care Team ([facility] st Contact Info) Description 01/25/2025 Telephone [facility] [address] [place] [address] Muna Arora CNM [address] [place] [address] chart prep Social History Tobacco Use Types Packs/Day Years [...] encounter Miscellaneous Notes * Telephone Encounter - Js Merrill [place] - 01/25/2025 1:52 PM EDT Chart Prep Labs: not applicable Images: not applicable Referrals: not applicable Vaccines due: Covid, Flu, Hep B, and Zoster Screenings: pap smear Overdue care gaps: Not applicable documented in this encounter Plan of Treatment Upcoming Encounters Date Type Department Care Team (Late st Contact Info) Description 04/06/2025 1:00 PM EST Office Visit [facility] [address] [place] [address] Muna Arora CNM [address] [place] [address] documented as of this encounter Visit Diagnoses Not on filedocumented in this encounter Additional Health Concerns Assessment Noted Time PHQ-9 Depression Total Score: 0 10/06/19 25 1:35 PM EDT documented as of this encounter Care Teams Seed Cutter Relationship Specialty Start Date End Date Yuly Arce MD [address] [place] [address] PCP - General Internal Medicine 12/12/22 documented as of this encounter
--- OUTSIDE RECORDS SUMMARY | 2025-01-28 18:18 | XMS_ITS | Patient Health Record ---
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.39) Active confirmed Problem Mixed hyperlipidemia (588818273) Mixed hyperlipidemia (E78.2) Active confirmed Problem Sedative, hypnotic or anxiolytic dependence, 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) Active confirmed Problem Glaucoma associated with systemic syndromes (08984632) Glaucoma in diseases classified elsewhere (H42) Active confirmed Problem Fibromyalgia (988565113) Fibromyalgia (M79.7) Active confirmed Problem Diabetic peripheral neuropathy associated with type 2 diabetes mellitus (1760196261280) Type 2 diabetes mellitus with diabetic neuropathy, without long-term current use of insulin (E11.40) Active confirmed Problem Essential hypertension (87554677) Essential hypertension (I10) Active confirmed Problem Gastroesophageal reflux disease without esophagitis (378766267) Gastroesophageal reflux disease without esophagitis (K21.9) Active confirmed Problem Hyperglycemia due to type 2 diabetes mellitus (718717361852072) Type 2 diabetes mellitus with hyperglycemia, without long-term current use of insulin (E11.65) Active confirmed Problem Type 2 diabetes mellitus with other specified complication, without long-term current use of insulin (E11.69) Active confirmed HYPERLIPIDE JASBIR ASSOCIATED WITH T2DM. Problem Moderate recurrent major depression (04401088) Moderate episode of recurrent major depressive disorder (F33.1) Active confirmed Problem Mild recurrent major depression (93100410) Depression, major, recurrent, mild (F33.0) Active confirmed Problem Cataract (996345242) Cataract of right eye, unspecified cataract type (H26.9) Active confirmed Problem Panic disorder (191194982) Panic disorder [episodic paroxysmal anxiety] (F41.0) Active confirmed Problem Sleep disorder (94124272) Sleep disorder (G47.9) Active confirmed Problem Generalized anxiety disorder (67036244) HERMELINDA (generalized anxiety disorder) (F41.1) Active confirmed Problem Type 2 diabetes mellitus with peripheral angiopathy (986962361) Diabetes mellitus with peripheral angiopathy (E11.51) Active confirmed Problem Bipolar affective disorder, currently depressed, moderate (930091431) Bipolar affective disorder, currently depressed, moderate (F31.32) Active confirmed Problem Ischemic stroke (428359983) Ischemic stroke (I63.9) Active confirmed Problem Rotator cuff impingement syndrome (373862792) Rotator cuff impingement syndrome (M75.101) Active confirmed [...] Insured Coverage Start Date Coverage End Date [facility] [address] [address] [place] [address] [id number] Yuly Nair Self - patient is the insured Medical (General) History Medical History History ICD Code Arthritis Fibromyalgia Diabetes Mellitus Surgical History Surgery Date(Month/Year) Carpel tunel (R) hand 2011 Cholecystectomy 2006 Cyst breast (L) 2010 Hysterectomy 2012 C-Secction 1989,1988,1987
--- OUTSIDE RECORDS SUMMARY | 2025-01-28 18:18 | XMS_ITS | Encounter Summary ---
Author Organization [employer] Address [address] [facility] 7t [place] [address] Care Team Providers Care Data Base Administrator Name Role Phone Yuly Arce MD Primary Care Pro vider Encounter Details Date Type Department Care Team (Latest Contact Info) Description 01/15/2025 Results Follow-Up [facility] [address] [place] [address] Yuly Arce MD [address] [place] [address] Albumin, Random Urine W/Creatinine, CBC auto differential, Comprehensive Metabolic Panel, Additional followed-up results: 5 Social History Tobacco Use Types Packs/Day Years [...] Encounter Note - Yuly King MD - 01/15/2025 3:25 PM EDT Please call patient to advise to come to already scheduled apt with me to go over abnormal labs Thanks documented in this encounter Plan of Treatment Upcoming Encounters Date Type Department Care Team (Late st Contact Info) Description 04/06/2025 1:00 PM EST Office Visit [facility] [address] [place] [address] Muna Arora CN [address] [place] [address] documented as of this encounter Visit Diagnoses Not on filedocumented in this encounter Additional Health Concerns Assessment Noted Time PHQ-9 Depression Total Score: 0 10/06/19 1:35 PM EDT documented as of this encounter Care Teams Data Base Administrator Relationship Specialty Start Date End Date Yuly Arce MD [address] [place] [address] PCP - General Internal Medicine 12/12/22 documented as of this encounter
--- OUTSIDE RECORDS SUMMARY | 2025-01-28 18:19 | XMS_ITS | Encounter Summary ---
Author Organization [employer] Address [address] [facility] [address]t [place] [address] Care Team Providers Care Certified Drug Counselor Name Role Phone Yuly Arce MD Primary Care Pro vider Encounter Details Date Type Department Care Team (Latest Contact Info) Description 01/28/2025 Travel Social History Tobacco Use Types Packs/Day [...] Description 04/06/2025 1:00 PM EST Office Visit [facility] [address] [place] [address] Muna Arora CNM [address] [place], [place] [phone] documented as of this encounter Visit Diagnoses Not on filedocumented in this encounter Additional Health Concerns Assessment Noted Time PHQ-9 Depression Total Score: 0 10/06/19 25 1:35 PM EDT documented as of this encounter Care Teams Certified Drug Counselor Relationship Specialty Start Date End Date Yuly Arce MD [address] [place], [place] [phone] PCP - General Internal Medicine 12/12/22 documented as of this encounter
--- OUTSIDE RECORDS SUMMARY | 2025-01-28 18:19 | XMS_ITS | Clinical Summary ---
Author Organization [employer] Address [address] [place] [address] Care Team Providers Care Personnel Research Psychologist Name Role Phone Yuly Arce MD Primary Care Pro vider Allergies No known active allergies Medications * This document contains information received from the source organization and may not represent a complete record from that organization. Blood Glucose Monitoring Suppl (FreeStyle Lite) device Inject under the skin in the morning. Test daily before all meals/snacks and once before bedtime. 1 each 023 Active Alcohol Sheets (Alcoh-Wipe) sheet Test daily before all meals/snacks and once before bedtime. 100 each 023 Active Alcohol Swabs (Easy Touch Alcohol Prep Medium) 70 % pads USE DIRECTED TO TEST BLOOD SUGAR TWICE DAILY 100 each 023 Active FreeStyle lancets 1 each by Other route in the morning. Use bid, dx type 2 diabetes 100 each 11 023 Active glucose blood (FREESTYLE LITE) test strip TEST BLOOD SUGAR TWICE A DAY. Dx diabetes 100 each 023 Active QUEtiapine (SEROquel) 100 MG tabletIndications :Bipolar affective disorder, remission status unspecified (CMS/HCC) TAKE 1 TABLET BY MOUTH DAILY AT BEDTIME 30 tablet 2 023 Active lamoTRIgine (LaMICtal) 100 MG tabletIndications :Bipolar disorder, unspecified (CMS/HCC) TAKE 1 TABLET BY MOUTH DAILY IN THE MORNING 30 tablet 2 024 Active FLUoxetine (PROzac) 40 MG capsuleIndication s:Bipolar affective disorder, remission status unspecified (CMS/HCC) TAKE 1 CAPSULE BY MOUTH DAILY IN THE MORNING 30 capsule 2 024 Active Diclofenac Sodium 1 % gel Apply 1 Application topically if needed each day (knee pain). 50 g 024 Active hydrOXYzine HCl (Atarax) 25 MG tablet TAKE 1 OR 2 TABLETS BY MOUTH EVERY DAY AT BEDTIME NEEDED FOR SLEEP Active ketorolac (Acular) 0.5 % ophthalmic solution PLACE 1 DROP IN THE AFFECTED EYE THREE TIMES DAILY. START 2 DAYS BEFORE SURGERY AND CONTINUE DIRECTED Active lidocaine (Lidoderm) 5 % patchIndications: Chronic right-sided low back pain without sciatica Apply 1 patch topically Once per day. Remove & discard patch within 12 hours or as directed by MD. 30 patch 2 Active albuterol 108 (90 Base) MCG/ACT inhaler Inhale 2 puffs every 6 (six) hours if needed for wheezing. 18 g 025 2025 Active zolpidem (Ambien) 5 MG tablet Take 5 mg by mouth if needed at bedtime for sleep. Active gabapentin (Neurontin) 800 MG tablet Take 1 tablet (800 mg) by mouth 3 times daily. 90 tablet 2 2024 Active metFORMIN (Glucophage) 1000 MG tabletIndications :Controlled type 2 diabetes with neuropathy (CMS/HCC) Take 1 tablet (1,000 mg) by mouth with breakfast and with evening meal. 180 tablet 025 2024 Active ezetimibe (Zetia) 10 MG tabletIndications :Controlled type 2 diabetes with neuropathy (CMS/HCC) Take 1 tablet (10 mg) by mouth Once per day. 90 tablet 025 2025 Active atorvastatin (Lipitor) 80 MG tabletIndications :Controlled type 2 diabetes with neuropathy (CMS/HCC),Hyperli pidemia, unspecified hyperlipidemia type Take 1 tablet (80 mg) by mouth Once per day. 90 tablet Active famotidine (Pepcid) 20 MG tabletIndications :Controlled type 2 diabetes with neuropathy (CMS/HCC) Take 1 tablet (20 mg) by mouth 2 times daily. 60 tablet 1 025 2024 Active dapagliflozin (Farxiga) 5 MG Take 1 tablet (5 mg) by mouth in the morning. 90 tablet 025 Active estradiol (Estrace) 0.1 MG/GM vaginal cream 1g vaginally x 14d, then twice weekly thereafter 45 g 2 Active famotidine (Pepcid) 20 MG tablet Take 1 tablet (20 mg) by mouth 2 times daily. 60 tablet 1 024 2024 Discontinued(O ther) ezetimibe (Zetia) 10 MG tabletIndications :Controlled type 2 diabetes with neuropathy (CMS/HCC) Take 1 tablet (10 mg) by mouth Once per day. 90 tablet 025 2024 Discontinued(R eorder (will not trigger notification to Pharmacy)) metFORMIN (Glucophage) 1000 MG tabletIndications :Controlled type 2 diabetes with neuropathy (CMS/HCC) Take 1 tablet (1,000 mg) by mouth with breakfast and with evening meal. 180 tablet 025 2024 Discontinued(R eorder (will not trigger notification to Pharmacy)) atorvastatin (Lipitor) 80 MG tabletIndications :Hyperlipidemia, unspecified hyperlipidemia type Take 1 tablet (80 mg) by mouth Once per day. 90 tablet 025 2024 Discontinued(R eorder (will not trigger notification to Pharmacy)) dapagliflozin (Farxiga) 5 MG Take 1 tablet (5 mg) by mouth in the morning. 90 tablet 025 2024 Discontinued(R eorder (will not trigger notification to Pharmacy)) gabapentin (Neurontin) 800 MG tabletIndications :Controlled type 2 diabetes with neuropathy (CMS/HCC) Take 1 tablet (800 mg) by mouth 4 times daily. 360 tablet 2 025 2024 Discontinued(R eorder (will not trigger notification to Pharmacy)) Active Problems Problem Noted Date Diagnosed Date [...] To be scanned in system-not seen in Epic--vit B 12 elevated at 1983--pt taking OTC [...] syndrome Denies SI PHQ9:9 Was living in [place] and came to [place] 3 mo ago. Reports having episodes of extreme anxiety in the past that has episodes of blindness ,seen for this per pt mx times in the hospital at [place] and reports had normal neuro workup. -reports severe neuropathy in LEs , used to f w neurologist in [place] on high doses of gabapentin. States has [...] conversion syndrome Denies SI PHQ9:9 -continue meds - evaluated today and to refer to outpt [...] manic episodes, insomnia, diagnosed by psychiatrist in [place]), occasional visual hallucinations (a person standing in [...] Items Addressed This Visit Other Bipolar disorder ([facility]) Anxiety Patient ready to address current needs Yes Strengths- Yuly is open and engaged. She is in the preparation stage of change. PLAN: 1. Follow up with [facility]: Not recommended for follow-up 2. Patient goal is to engage in OP therapy and medication management 3. Behavioral Recommendations a. Deep breathing b. Grounding c. Breaking down tasks into smaller pieces Insomnia 10/16/2022 Resolved Problems Problem Noted Date Diagnosed Date Resolved Date Chest pain 04/04/2023 10/05/2024 Encounters Date Type Department Care Team Description 01/28/2025 Travel 01/26/2025 1:45 PM EDT Procedure Visit [address] [address] Muna Mcrae CNM Atrophic vaginitis (Primary Dx); Pelvic and perineal pain 01/26/2025 Travel 01/25/[address] [address] Muna Mcrae CNM chart prep 01/22/2025 1:30 PM EDT Office Visit [address] [address] Yuly Arce MD Health care maintenance (Primary Dx); Controlled type 2 diabetes with neuropathy ([facility]); Hyperlipidemia, unspecified hyperlipidemia type; Bipolar affective disorder, remission status unspecified ([facility]); Memory loss 01/22/2025 Travel 01/15/2025 Results Follow-Up [facility] [address] [place] [address] Yuly Arce MD Albumin, Random Urine W/Creatinine, CBC auto differential, Comprehensive Metabolic Panel, Additional followed-up results: 5 01/14/2025 Orders Only [facility] [address] [place] [address] Yuly Arce MD Health care maintenance (Primary Dx) 01/14/2025 Telephone [facility] [address] [place] [address] Yuly Arce MD Telephone call 12/11/2024 Telephone [facility] [address] [place] [address] Yuly Arce MD Referral 11/03/2024 Telephone [facility] [address] [place] [address] Rachael Perales OD from Last 3 Months [...] Not Answered Alcohol Use Standard Drinks/Week Comments Not Currently [...] 20 01/26/2025 2:02 PM EDT Oxygen Saturation 98% 01/22/2025 1:48 PM EDT Inhaled Oxygen Concentration - - Weight 68.9 kg (152 lb) 01/26/2025 2:02 PM EDT Height 162.6 cm (5' 4 ) 01/26/2025 2:02 PM EDT Body Mass Index 26.09 01/26/2025 2:02 PM EDT Plan of Treatment Upcoming Encounters Date Type Department Care Team (Late st Contact Info) Description 04/06/2025 1:00 PM EST Office Visit [facility] [address] [place] [address] Muna Mcrae, CNM [address] [place] [address] Health Maintenance Due Date Last Done Comments CT Colonography 1970 FIT DNA/Cologuard 1970 FIT 1970 FOBT 1970 Sigmoidoscopy 1970 Diabetes: Foot Exam 1980 Hepatitis B Vaccines (1 of 3 - 19+ 3-dose series) 1989 Zoster Vaccines (2 of 2) 03/17/2024 01/21/2024 COVID-19 Vaccine (2024- season) 2025 07/01/2023, 12/06/2022 Influenza Vaccine (#1) 2025 04/03/2023 Diabetes: Hemoglobin A1C 04/17/2025 025, 06/05/2024, 01/07/2024, Additional history exists Alcohol/Substance Use Screening 10/05/2025 10/05/2024 Depression Screening 10/05/2025 10/05/2024, 10/06/19 25 Disability Screening 10/05/2025 10/05/2024 SDOH Screening 10/05/2025 10/05/2024 Mammogram 01/13/2026 01/14/2024, 08/09/2022, 01/11/2023 Diabetes: Urine Protein Screening 01/15/2026 01/15/2025, 03/05/2023, 12/11/2022 Lipid Panel 01/15/2026 01/15/2025, 03/0 12/2023, 03/05/2023 Eye Exam 01/22/2026 01/23/2024, 090 09/2023, 01/23/2024, Additional history exists Tobacco Screening 01/22/2026 01/22/2025 HPV/Cotest 03/27/2028 03/27/2023 Pap Smear 03/27/2028 03/27/2023 Colonoscopy 03/19/2030 03/19/2023 Colorectal Cancer Screening 03/19/2030 DTaP/Tdap/Td Vaccines (2 - Td or Tdap) 12/06/2032 12/06/2022 RSV Patients and Patients Aged 60 years or older (1 - 1-dose 75+ series) 2045 Pneumococcal Vaccine: 50+ Years Completed 12/06/2022 HIV Screening Completed 01/15/2025 Hepatitis C Screening Completed 01/15/2025 HIB Vaccines Aged Out No longer eligi [...] Procedure Name Priority Date/Time Associated Diagnosis Comments VITAMIN D,25-OH,TOTAL,IA Routine 01/15/2025 11:00 AM EDT Health care maintenance VITAMIN B12/FOLATE, SERUM PANEL Routine 01/15/2025 11:00 AM EDT Health care maintenance TSH W/REFLEX TO FT4 Routine 01/15/2025 1 1:00 AM EDT Health care maintenance LIPID PANEL, STANDARD Routine 01/15/2025 11:00 AM EDT Health care maintenance SYPHILIS SCREEN Routine 01/15/2025 11:00 AM EDT Health care maintenance HIV 1/2 ANTIGEN/ANTIBODY, FOURTH GENERATION W/RFL Routine 01/15/2025 11:00 AM EDT Health care maintenance HEPATITIS C AB W/REFL TO HCV RNA, QN, PCR Routine 01/15/2025 11:00 AM EDT Health care maintenance HEPATITIS B SURFACE ANTIGEN, EIA Routine 01/15/2025 11:00 AM EDT Health care maintenance HEPATITIS B SURFACE ANTIBODY, QUALITATIVE Routine 01/15/2025 11:00 AM EDT Health care maintenance HEPATITIS B CORE AB TOTAL Routine 01/15/2025 11:00 AM EDT Health care maintenance HEMOGLOBIN A1C Routine 01/15/2025 11:00 AM EDT Health care maintenance COMPREHENSIVE METABOLIC PANEL Routine 01/15/2025 11:00 AM EDT Health care maintenance CHLAMYDIA/TRICHOMONAS/ NEISSERIA GONORRHOEAE, PCR, URINE Routine 01/15/2025 11:00 AM EDT Health care maintenance CBC WITH AUTO DIFFERENTIAL Routine 01/15/2025 11:00 AM EDT Health care maintenance ALBUMIN, RANDOM URINE W/CREATININE Routine 01/15/2025 11:00 AM EDT Health care maintenance BI MAMMOGRAM SCREENING TOMOSYNTHESIS BILATERAL Routine 01/14/2024 11:10 AM EDT HPV MRNA E6/E7 REFLEX TO HPV 16, 18/45 Routine 03/27/2023 10:38 AM EST Controlled type 2 diabetes with neuropathy (CMS/HCC) PAP SMEAR Routine 03/27/2023 10:38 AM EST Controlled type 2 diabetes with neuropathy (CMS/HCC) HM COLONOSCOPY Routine 03/19/2023 from Last 3 Months or Most Recently Relevant to Health Maintenance Results * Chlamydia/Trichomonas/Neisseria gonorrhoeae, PCR, Urine (01/15/2025 11:00 AM EDT) CT PCR, Urine NOT DETECTED Not Detect. [facility] Comment:A not detected test result does not exclude the possibilityof infection because test results can be affected byimproper specimen collection, concurrent antibiotic therapy,or the number of organisms in the specimen which may bebelow the sensitivity of the test. As with many diagnostictests, results from the Xpert CT/NG assay should beinterpreted in conjunction with other laboratory andclinical data available to the clinician.The Xpert CT/NG assay should not be used for the evaluationof suspected sexual abuse or for other medico-legalindications. Additional testing is recommended in anycircumstance when false positive or false negative resultscould lead to adverse medical, social or psychologicalconsequences. NG PCR, Urine NOT DETECTED Not Detect. [facility] Comment:A not detected test result does not exclude the possibilityof infection because test results can be affected byimproper specimen collection, concurrent antibiotic therapy,or the number of organisms in the specimen which may bebelow the sensitivity of the test. As with many diagnostictests, results from the Xpert CT/NG assay should beinterpreted in conjunction with other laboratory andclinical data available to the clinician.The Xpert CT/NG assay should not be used for the evaluationof suspected sexual abuse or for other medico-legalindications. Additional testing is recommended in anycircumstance when false positive or false negative resultscould lead to adverse medical, social or psychologicalconsequences. Urine (Urine, Random) 01/15/2025 11:00 AM EDT 01/15/2025 1:24 PM EDT us Yuly King MD LAB URINE ORDERAB LES Final Result [facility] [address] [place] [phone] * Syphilis Screen (01/15/2025 11:00 AM EDT) Syphilis Screen Nonreactive Nonreactive [facility] Blood 01/15/2025 11:0 0 AM EDT 01/15/2025 1:25 PM EDT Yuly King MD LAB BLOOD ORDERAB LES Final Result [facility] [address] [place] [phone] * Vitamin D, 25-Hydroxy, Total, Immunoassay (01/15/2025 11:00 AM EDT) Vitamin D 25-OH Total 47.1 >30 ng/mL [facility] Comment: Health Based Reference Values*< 20 ng/mL [id number] ng/mL Insufficient> 30 ng/mL Sufficient*Latisha BARAJAS. N Engl J Med. 2007;357:266-280There is no well-established upper level of normal vitamin Dlevels. Some laboratories use 50 ng/mL as an upper limit ofnormal. However, toxicity is patient-dependent and may occurat any level. Careful correlation with the patient'spresentation is necessary and, if there is concern forvitamin D toxicity, treatment should be consideredirrespective of the serum level.Care must be taken in interpreting Vitamin D results fromdifferent laboratories and methodologies. Published datademonstrated that results from patients undergoinghemodialysis may show a negative bias when tested withvarious automated 25-OH vitamin D assays when compared toLC-MS/MS.When testing samples from patients whose predominant form ofVitamin D is Vitamin D2, such as patients receiving VitaminD2 supplementation, results that are subtherapeutic shouldbe confirmed with another method such as LC-MS/MS. Blood Venous blood specimen / Unknown 01/15/2025 11:00 AM EDT 01/15/2025 1:25 PM EDT us Yuly King MD LAB BLOOD ORDERAB LES Final Result Performing Organization Address [facility]/ZIP Co de Phone Number [facility] [address] [place] [phone] * Vitamin B12 (Cobalamin) and Folate Panel, Serum (01/15/2025 11:00 AM EDT) Vitamin B12 775 200 - 900 pg/mL [facility] Comment:NORMAL 200-900 PG/ML INDETERMINATE 160-199 PG/ML DEFICIENT < 160 PG/ML Folate 11.3 > or = 4.0 ng/mL [facility] Comment:Reference Values:> o r = 4.0 ng/mL< 4.0 ng/mL suggests folate deficiency Methotrexate, aminopterin and folinic acid(leucovorin) are chemotherapeutic agents whose molecularstructures are similar to folate; therefore, the Architectfolate assay cannot be used for patients using these drugs. Blood 01/15/2025 11:0 0 AM EDT 01/15/2025 1:25 PM EDT us Yuly King MD LAB BLOOD ORDERAB LES Final Result Performing Organization Address City/[facility]/ZIP Co de Phone Number [facility] [address] [place] [phone] * TSH with Reflex to Free T4 (01/15/2025 11:00 AM EDT) TSH reflex Free T4 1.62 0.32 - 4.0 uIU/mL [facility] Blood 01/15/2025 11:0 0 AM EDT 01/15/2025 1:25 PM EDT us Yuly King MD LAB BLOOD ORDERAB LES Final Result Performing Organization Address City/[facility]/ZIP Co de Phone Number [facility] [address] [place] [phone] * Albumin, Random Urine W/Creatinine (01/15/2025 11:00 AM EDT) Creatinine, Urine 70.02 mg/dL [facility] Microalbumin Urine <5.0 mg/L [facility] Microalbum Creatinine Ratio Ur TNP <30 ug/mg cr [facility] Comment:Unable to calculate albumin/creatinine ratio due to lowmicroalbumin or creatinine result. Urine (Urine, Random) 01/15/2025 11:00 AM EDT 01/15/2025 1:24 PM EDT us Yuly King MD LAB URINE ORDERAB LES Final Result [facility] [address] [place] [phone] * (ABNORMAL) CBC auto differential (01/15/2025 11:00 AM EDT) White Blood Count 6.8 4.8 - 10.8 X10*3/uL [facility] Red Blood Count 4.72 4.20 - 5.50 X10*6/uL [facility] Hemoglobin 15.2 12.0 - 16.0 g/dl [facility] Hematocrit 43.9 37.0 - 47.0 % [facility] Mean Corpuscular Volume 93.0 80.0 - 98.0 fL [facility] Mean Corpuscular Hemoglobin 32.2 27.0 - 33.0 pg [facility] Mean Corpuscular HGB Conc 34.6 31.0 - 35.0 g/dl [facility] Red Cell Distribution Width 12.0 11.0 - 16.0 % [facility] Platelet Count 341 160 - 400 X10*3/uL [facility] Mean Platelet Volume 9.7 9.4 - 12.3 fL [facility] Neutrophils Percent Auto 62.5 45 - 73 % [facility] Imm Gran Pct Auto 0.6(H) 0.0 - 0.4 % [facility] Lymphocytes Percent Auto 27.5 20 - 40 % [facility] Monocytes Percent Auto 7.0 2 - 11 % [facility] Eosinophils Percent Auto 1.8 0 - 4 % [facility] Basophils Percent Auto 0.6 0 - 2 % [facility] NRBC Pct Auto 0.0 0.0 - 0.2 /100WBC [facility] Neutrophils Absolute Auto 4.3 2.0 - 8.3 x10*3/uL [facility] Imm Gran Abs Auto 0.04(H) 0.00 - 0.03 X10*3/uL [facility] Lymphocytes Absolute Auto 1.9 1.2 - 4.9 X10*3/uL [facility] Monocytes Absolute Auto 0.5 0.1 - 1.2 X10*3/uL [facility] Eosinophils Absolute Auto 0.1 0.0 - 0.4 X10*3/uL [facility] Basophils Absolute Auto 0.0 0.0 - 0.2 X10*3/uL [facility] NRBC Abs Auto 0.000 0.0 - 0.012 X10*3/uL [facility] Blood Venous blood specimen / Unknown 01/15/2025 11:00 AM EDT 01/15/2025 1:25 PM EDT us Yuly King MD LAB BLOOD ORDERAB LES Final Result Performing Organization Address [facility]/ZIP Co de Phone Number [facility] [address] [place] [phone] * Hepatitis C Antibody with Reflex to HCV, RNA, Quantitative, Real-Time PCR (01/15/2025 11:00 AM EDT) Pathologist [facility] Hepatitis C Antibody Nonreactive Nonreactive [facility] Comment:Antibodies to HCV no t detected; does not exclude early acuteHCV infection. Blood Venous blood specimen / Unknown 01/15/2025 11:00 AM EDT 01/15/2025 1:25 PM EDT us Yuly King MD LAB BLOOD ORDERAB LES Final Result Performing Organization Address [facility] Co de Phone Number [facility] [address] [place] [phone] * Hepatitis B surface antigen, EIA (01/15/2025 11:00 AM EDT) Pathologist [facility] Hepatitis B Surface Ag Negative Negative [facility] Blood Venous blood specimen / Unknown 01/15/2025 11:00 AM EDT 01/15/2025 1:25 PM EDT us Yuly King MD LAB BLOOD ORDERAB LES Final Result Performing Organization Address City/[facility]/ZIP Co de Phone Number [facility] [address] [place] [phone] * Hepatitis B Core Antibody, Total (01/15/2025 11:00 AM EDT) Hepatitis B Core Antibody Nonreactive Nonreactive [facility] Blood Venous blood specimen / Unknown 01/15/2025 11:00 AM EDT 01/15/2025 1:25 PM EDT us Yuly King MD LAB BLOOD ORDERAB LES Final Result Performing Organization Address [facility] Co de Phone Number [facility] [address] [place] [phone] * HIV-1/2 Antigen and Antibodies, Fourth Generation, with Reflexes (01/15/2025 11:00 AM EDT) HIV AB/AG Nonreactive Nonreactive [facility] Comment:HIV-1 p24 Ag and/or HIV-1/HIV-2 Ab not detected.A test result that is nonreactive does not exclude thepossibility of exposure to or infection with HIV-1 and/orHIV-2. Nonreactive results in this assay for individualswith prior exposure to HIV-1 and/or HIV-2 may be due toantigen and antibody levels that are below the limit ofdetection of this assay.[employer] HIV Ag/Ab Combo assay result andsupplemental assay results should be interpreted inconjunction with the patient's clinical presentation,history and other laboratory results. If the results areinconsistent with clinical evidence, additional testing issuggested to confirm the result. Blood Venous blood specimen / Unknown 01/15/2025 11:00 AM EDT 01/15/2025 1:25 PM EDT Yuly King MD LAB BLOOD ORDERAB LES Final Result Performing Organization Address [facility] Co de Phone Number [facility] [address] [place] [phone] * Hepatitis B Surface Antibody, Qualitative (01/15/2025 11:00 AM EDT) ~Hepatitis B Surface Antibody NONREACTIVE Nonreactive [facility] Comment:Nonreactive: < 8.00 mIU/mL Blood Venous blood specimen / Unknown 01/15/2025 11:00 AM EDT 01/15/2025 1:25 PM EDT Yuly King MD LAB BLOOD ORDERAB LES Final Result Performing Organization Address [facility] [address] [place] [phone] * (ABNORMAL) Hemoglobin A1c (01/15/2025 11:00 AM EDT) Hemoglobin A1c 7.2(H) <6.0 % [facility] Comment:Hemoglobin A1C Refer ence Range Adults: 4.8 - 6.0 % Non diabetic: < 6.0 % Goal: < 7.0 %Additional Action Suggested: > 8.0 %Note: Hemoglobin A1c results are invalid for patients with abnormal amounts of HbF. Blood transfusions may impact the HbA1c concentration in the patient sample. Estimated Average Glucose 160 mg/dL [facility] Comment:eAG = Estimated ave rage glucose which is %A1C expressed asaverage glucose, using the formula of the X1Y-EofnktrCghujdo Glucose study (ADAG), Diabetes Care, Vol.31,#8,Dec. 2007 Blood Venous blood specimen / Unknown 01/15/2025 11:00 AM EDT 01/15/2025 1:25 PM EDT Yuly King MD LAB BLOOD ORDERAB LES Final Result Performing Organization Address [facility]/ZIP Co de Phone Number [facility] [address] [place] [phone] * Lipid Panel, Standard (01/15/2025 11:00 AM EDT) Triglycerides 111 <150 mg/dL [facility] Comment:Desirable Triglyceri de: less than 150 mg/dLBorderline High Triglyceride 150-199 mg/dLHigh Triglyceride: 200-499 mg/dLVery High Triglyceride: greater than or equal to 5OO mg/dL Cholesterol 151 <200 mg/dL [facility] Comment:Desirable Cholestero l: less than 200 mg/dLBorderline High Cholesterol: 200-239 mg/dLHigh Cholesterol: greater than 239 mg/dL LDL Cholesterol Calculated 78 <100 mg/dL [facility] Comment:Desirable LDL: less than 100 mg/dLNear Optimal/Above Optimal LDL: 110- 129 mg/dLBorderline High LDL: 130-159 mg/dLHigh LDL: 160-189 mg/dLVery High LDL: greater than or equal to 190 mg/dL HDL Cholesterol 51 >40 mg/dL [facility] Comment:Desirable HDL: great er than 40 mg/dL Note: This HDL assay may give artificially low results in patients with liver disease. Blood Venous blood specimen / Unknown 01/15/2025 11:00 AM EDT 01/15/2025 1:25 PM EDT us Yuly King MD LAB BLOOD ORDERAB LES Final Result [facility] [address] [place] [phone] * (ABNORMAL) Comprehensive Metabolic Panel (01/15/2025 11:00 AM EDT) Sodium 142 135 - 145 mmol/L [facility] Potassium 4.0 3.3 - 5.1 mmol/L [facility] [facility] Chloride 107 96 - 108 mmol/L [facility] Carbon Dioxide 26 22 - 29 mmol/L [facility] Anion Gap 13 12 - 20 [facility] Urea Nitrogen (BUN) 14 9 - 16 mg/dL [facility] Creatinine, Serum 0.68 0.5 - 1.4 mg/dL [facility] Estimated Glomerular Filt Rate >60 [facility] Comment:Chronic Kidney Disea se: Estimated GFR < 60 mL/min/1.22o0Ditsed Kidney Disease: Estimated GFR < 15 mL/min/1.73m2 Glucose 119(H) 60 - 115 mg/dL [facility] Calcium 9.7 8.4 - 10.2 mg/dL [facility] Bilirubin, Total 0.6 0.0 - 1.0 mg/dL [facility] Aspartate Amino Transferase 27 5 - 31 U/L [facility] Alanine Aminotransferase 47(H) 0 - 31 U/L [facility] Total Protein 6.9 6.5 - 8.0 g/dL [facility] Albumin Level 4.8 3.5 - 5.0 g/dL [facility] Alkaline Phosphatase 85 39 - 117 U/L [facility] Blood Venous blood specimen / Unknown 01/15/2025 11:00 AM EDT 01/15/2025 1:25 PM EDT us Yuly King MD LAB BLOOD ORDERAB LES Final Result [facility] [address], [place] [phone] * BI Mammogram Screening Tomosynthesis Bilateral (01/14/2024 11:10 AM EDT) Anatomical Region Laterality Modality Breast Bilateral Mammography 01/14/2024 11:1 0 AM EDT Narrative 02/07/2024 3:09 PM EDT [facility] [address] [place] [address] Mammography Report Signed Patient: Yuly Nair MR#: [id number] : 1970 Acct:[id number] Age/Sex: 53 / F ADM Date: 01/14/24 Loc: HO.MAMMO Attending Dr: Yuly King MD Ordering Physician: Yuly Arce MD sults: 1Negative Date of Service: 01/14/24 Follow Up: 1 Year From Orig inal Mammogram Procedure(s): MM tomosynthesis screening BI Accession Number(s): [id number] cc: Yuly Arce MD EXAMINATION: MM SCREENING [...] 02/07/24 1506 DD/ 1110 TD/TT: 01/14/24 1125 Geographic Analyst: Procedure Note Donotuseinterpreter, Image - 02/07/20[facility] [address] [place], [place] [address] Mammography Report Signed Patient: Yuly Nair [facility]#: [id number] : 1970Acct:[id number] Age/Sex: 53 / FADM Date: 01/14/24 Loc: HO.MAMMO Attending Dr: Yuly King MD Ordering Physician: Yuly Arce sults: 1Negative Date of Service: 01/14/24Follow Up: 1 Year From Orig inal Mammogram Procedure(s): MM tomosynthesis screening BI Accession Number(s): [id number] cc: Yuly Arce MD EXAMINATION: MM SCREENING [...] 02/07/24 1506 DD/ 1110 TD/TT: 01/14/24 1125 Geographic Analyst: Yuly King MD [facility] BI PROCEDURES Edited Result - Final * HPV mRNA E6/E7 w/Reflex to HPV Genotypes 16, 18/45 (03/27/2023 10:38 AM EST) HPV nRNA E6/E7 Not Detected Not Detected [facility] Comment:Methodology: Transcr iption-Mediated AmplificationThis assay detects E6/E7 viral messenger RNA (mRNA) from 14high-risk HPV types (16,18,31,33,35,39,45,51,52,56,58,59,66,68).Cervical sources are required for HPV testing.If a vaginal source from a patient who has had atotal hysterectomy with removal of cervix wassubmitted, please contact the testing laboratoryfor alternative testing options.For additional information, please refer tohttp://education.[employer]/faq/MGU212z3(This link if provided for information/educational purposes only.)THIS TEST WAS PERFORMED AT:[facility] [place] [id number] BASHIR MD HPV mRNA E6/E7 TNP [facility] HPV 16 RNA TNP [facility] HPV 18/45 RNA TNP [facility] 03/27/2023 10:3 8 AM EST 03/28/2023 10:55 AM EST Muna Mcrae CNM LAB CYTOLOGY ORDERABLES F inal Result [facility] [address] [place] [phone] * Pap Smear (03/27/2023 10:38 AM EST) 03/27/2023 10:3 8 AM EST 03/28/2023 10:55 AM EST Narrative [facility] - 04/17/2023 1:46 PM EST ----- ------- Name: Yuly Nair Age/Sex: 52/F : 1970 Unit#: [id number] Attend Dr: MUNA MCRAE CNM Re03/27/23 Status: DEP REF Location: [facility] Disch: ----- ------- SPEC : [id number] RECD: 03/28/23 STATUS: JARED CHANG NUM: [id number] JAIME: 03/27/23-10[address] [facility] [address]: MUNA MCRAE [facility] ENTERED: 03/28/23-1219 SP TYPE: Pap Smr OTHR DR: ORDERED: Pap Smear Interpretation Satisfactory for evaluation. Negative for intraepithelial lesion or malignancy. HPV mRNA E6/E7: NOT DETECTED This assay detects E6/E7 viral messenger RNA (mRNA) from 14 high-risk HPV types (16, 18, 31, 33, 35, 39, 45, 51, 52, 56, 58, 59, 66, 68) HPV testing performed by [employer], [place], [place]. See reference laboratory portion of the EMR for entire report. Clinical Information LMP: Unknown date Previous PAP test: Unknown date/findings Other surgery: S/p hysterectomy for uterine cancer Material Received ThinPrep-Vaginal ----- ------- Signed (signature on file) ANN Sewell ([facility]) 04/17/23 1346 ----- ------- END OF REPORT Muna Mcrae CNM LAB CYTOLOGY ORDERABLES F inal Result [facility] [address] [place] [phone] * Hm Colonoscopy (03/19/2023) Colonoscopy Normal Normal Narrative Dilia Espinosa - 03/19/2023 Recommended repeat in 7-10 years see external hospital admission note on 03/19/2023 us Historical Provider HEALTH MAINTENANCE Final Result from Last 3 Months or Most Recently Relevant to Health Maintenance [facility] Care Teams Personnel Research Psychologist Relationship Specialty Start Date End Date Yuly Arce MD [address] [place] [address] PCP - General Internal Medicine 12/12/22
--- OUTSIDE RECORDS SUMMARY | 2025-01-28 18:19 | XMS_ITS | Patient Health Record ---
Author Organization [facility] Address [address] [place], [place] [address] Care Team Providers Care Fast Food Crew Member Name Role Phone Petey Goodson Primary Care Provider Kd Quigley Unavailable [phone] Andres Wilson Unavailable Unavailable Reason For Referral No Information Medications Medication SIG (Take, Route, Frequency, Duration) Notes Start Date End Date Status metFORMIN HCl *Please review a nd pick correct strength-formulatio n from [employer] options. If intended option is not shown, discontinue and re-order from Quick Search* Active Diclofenac Sodium 75 MG Tablet Delayed Release 1 tab(s) orally 2 times a day; Duration: 30 day(s) Active Meloxicam 15 MG Tablet 1 tab(s) orally once a day; Duration: 45 day(s) Active Creon *Please review a nd pick correct strength-formulatio n from [employer] options. If intended option is not shown, discontinue and re-order from Quick Search* Active Voltaren 1 % Gel 2 g applied topically 4 times a day; Duration: 30 day(s) Active Dicyclomine HCl *Please review a nd pick correct strength-formulatio n from [employer] options. If intended option is not shown, discontinue and re-order from Quick Search* Active VITAMIN B-50 VITAMIN B COMPLEX TABLET 1 TAB(S) ORALLY ONCE A DAY; Duration: 30 DAY(S) *Please review for potential replacement for e-prescription and drug interaction check* Active Omeprazole *Please review a nd pick correct strength-formulatio n from [employer] options. If intended option is not shown, [...] Drew 03/22/2014 3:16:50 PM > Alcohol: no Joe Drew 03/22/2014 3:16:47 PM > Recreational drugs [...] (250.92) Active confirmed Problem Cubital tunnel syndrome (050823510) Cubital tunnel syndrome (354.2) Active confirmed Problem Hypertension (81956231) Hypertension (401.9) Active confirmed Problem Carpal tunnel syndrome (02347289) Carpal tunnel syndrome (354.0) Active confirmed Problem Trigger finger (8718558) Trigger finger (727.03) Active confirmed Plan Of Treatment No Information Insurance Providers Payer Name Payer Address Payer Phone Subscriber Number Group Number Insured Name Patient Relationship to Insured Coverage Start Date Coverage End Date [employer] [address] [address] [place] [address] [id number] Yuly Muhammad Self - patient is the insured Medical (General) History Medical History History ICD Code Anxiety disorder Bipolar depression diabetes mallitus - Is a [facility] risk factor for infections following surgeries GERD Pancreatic disorder Hypertension Surgical History Surgery Date(Month/Year) C section x3 Right breast lumpectomy Right carpal tunnel release and a right cubital tunnel release. RCTR R Cub TR R thumb mass excision R Medial Epicondyle osteotomy Hospitalization History Reason Date(Month/Year) For For studies Above listed surgeries
--- OUTSIDE RECORDS SUMMARY | 2025-01-28 18:19 | XMS_ITS | Encounter Summary ---
Author Organization [employer] Address [address] [place] [address] 7 [place] [address] Care Team Providers Care Fuse Assembler Name Role Phone Yuly Arce MD Primary Care Pro vider Reason for Visit * Reason Onset Date Comments Med Refill 06/12/2024 Encounter Details Date Type Department Care Team ([facility] st Contact Info) Description 06/12/2024 Telephone [facility] [address] [place] [address] Yuly Arce MD [address] [place] [address] Med Refill Social History Tobacco Use Types [...] with others, in a hotel, in a skilled nursing, living outside on the street, on a [...] 1000 MG tablet To be sent to: [facility] - [place], [place] - [address] [place] [address] documented in this encounter Plan of Treatment Upcoming Encounters Date Type Department Care Team (Late st Contact Info) Description 04/06/2025 1:00 PM EST Office Visit [facility] [address] [place] [address] Muna Arora CNM [address] [place] [address] documented as of this encounter Visit Diagnoses Not on filedocumented in this encounter Additional Health Concerns Assessment Noted Time PHQ-9 Depression Total Score: 10 024 11:18 AM EDT documented as of this encounter Care Teams Fuse Assembler Relationship Specialty Start Date End Date Yuly Arce MD [address] [place] [address] PCP - General Internal Medicine 12/12/22 documented as of this encounter
--- OUTSIDE RECORDS SUMMARY | 2025-01-28 18:19 | XMS_ITS | Encounter Summary ---
Author Organization [employer] Address [address] [facility] [address] [place] [address] Care Team Providers Care Wildland Firefighter Name Role Phone Yuly Arce MD Primary Care Pro vider Reason for Visit * Reason Comments Med Refill Encounter Details Date Type Department Care Team ([facility] st Contact Info) Description 10/05/2024 Refill [facility] [address] [place] [address] Yuly Arce MD [address] [place] [address] Controlled type 2 diabetes with neuropathy (CMS/[facility]) Social History Tobacco Use Types Packs/Day Years [...] Author Not at all 10/05/2024 1:35 PM CECILIOT Demario Hankins [place] * Feeling bad about [...] to sit still 0 10/05/2024 1:35 PM CECILIOT Cathy Hankins [place] Becoming easily annoyed or irritable 0 10/05/2024 1:35 PM CECILIOT Cathy Hankins [place] Feeling afraid as if somethi ng awful might happen 0 10/05/2024 1:35 PM CECILIOT Cathy Hankins [place] HERMELINDA-7 Total Score 0 10/05/2024 1:35 PM Cathy Kaminski [place] documented as of this encounter Plan of Treatment Upcoming Encounters Date Type Department Care Team (Late st Contact Info) Description 04/06/2025 1:00 PM EST Office Visit [facility] [address] [place] [address] Muna Arora CNM [address] [place] [address] documented as of this encounter Visit Diagnoses Diagnosis Controlled type 2 diabetes with neuropathy (CMS/HCC) Type II or unspecified type diabetes mellitus with neurological manifestations, not stated as uncontrolled documented in this encounter Additional Health Concerns Assessment Noted Time PHQ-9 Depression Total Score: 0 10/06/19 25 1:35 PM EDT documented as of this encounter Care Teams Wildland Firefighter Relationship Specialty Start Date End Date Yuly Arce MD [address] [place] [address] PCP - General Internal Medicine 12/12/22 documented as of this encounter
== END 2025-01-28 14:41 | disposition home or self-care (01) ==
LOC: HO.MAMMO 14:40
PROVIDERS: PCP Student in an Organized Health Care Education/Training Program; Visit Provider Student in an Organized Health Care Education/Training Program
DX: Z12.31 Encounter for screening mammogram for malignant neoplasm of breast (principal)
CPT/HCPCS: 77063; 77067

== ENCOUNTER → 2025-01-28 14:51 | Outpatient (BNV) | payer MEDICAID, SELFPAY | PROVIDERS: PCP Student in an Organized Health Care Education/Training Program; Visit Provider Internal Medicine | DX: Z12.31 Encounter for screening mammogram for malignant neoplasm of breast (principal) | CPT/HCPCS: 77063; 77067 ==

== ENCOUNTER 2025-04-08 12:20 | Outpatient (REF) | payer MEDICAID, SELFPAY | END 2025-04-08 12:21 | disposition home or self-care (01) | LOC: HO.HHCL 12:20 | PROVIDERS: PCP Student in an Organized Health Care Education/Training Program; Visit Provider Advanced Practice Midwife | DX: R30.0 Dysuria (principal) | CPT/HCPCS: 87086 ==